=== PATIENT | male | born 1960 | race Caucasian/White ===

== ENCOUNTER 2018-12-29 16:32 | Inpatient (IN) | payer BC, OTHER ==
[2018-12-29] MEDS ORDERED: Sodium Chloride 0.9% 10 ML Syringe FLUSH PRN (16:40)
[2018-12-29] MEDS ORDERED: Iohexol 647 MG/ML 100 ML Bottle IVPUSH ONE (16:43)
[2018-12-29] MEDS ORDERED: Sodium Chloride 0.9% 100 ML IV SCH (16:45)
[2018-12-29] MEDS ORDERED: HYDROmorphone 0.5 MG/0.5 ML Syringe IVPUSH ONE ×3 (16:48→19:19)
--- NOTE | 2018-12-29 18:00 | CT ---
CT chest Technique: Multiple axial sections were obtained from above the lung apices inferiorly through the lung bases. Intravenous contrast was utilized. Comparison: Prior chest x-ray of 09/02/13. Findings: Mediastinum and hilar regions are unremarkable. Aorta shows no aneurysm. No pericardial fluid is seen. Small hiatal hernia is noted. Lungs are clear. No acute parenchymal contusion is seen. No pleural effusions are seen. No pneumothorax is identified. Nondisplaced fracture is seen within the posterior right fourth rib. No additional rib fracture is appreciated. Lateral reconstructed views of the sternum appear within normal limits. Vertebral body heights are maintained. Impression: 1. Nondisplaced fracture within the posterior right fourth rib. 2. Small hiatal hernia. 3. No additional abnormality is appreciated on CT study of the chest. Diagnostic code #3 CT abdomen and pelvis Technique: Multiple axial sections were obtained from above the dome of the diaphragm inferiorly through the pubic symphysis. Intravenous contrast was utilized. No oral contrast has been given. Findings: Liver shows no focal abnormality. Gallbladder contains no calcified gallstones. Spleen appears within normal limits. Adrenal glands shows a small nodule on the left side believed to be incidental. Kidneys show symmetric contrast enhancement and show nothing acute. Aorta shows no aneurysm. Pancreas is within normal limits. No retroperitoneal adenopathy or mesenteric abnormalities are seen. No pelvic mass or adenopathy is seen. Small fat-containing left inguinal hernia is noted. Bone window settings shows disc space narrowing at L4-5 and L5-S1 with vacuum phenomena. Vacuum phenomenon is also noted within the L3-4 apophyseal joints. No acute abnormality is seen within the lumbar spine or pelvis. Impression: 1. Findings which are felt to be incidental as noted above. Nothing acute is appreciated on CT study of the abdomen and pelvis. Diagnostic code #2
--- NOTE | 2018-12-29 18:06 | CT ---
Head CT Technique: Multiple axial sections through the brain were obtained. Intravenous contrast was not utilized. Comparison: No prior intracranial imaging is available. Findings: Ventricles along with basal cisterns and sulci over the convexities are within normal limits. No abnormal parenchymal densities are seen. No evidence of intracranial hemorrhage. No midline shift or mass effect is seen. Bone window settings were reviewed which shows no acute paranasal sinus findings. No calvarial abnormality is appreciated. Impression: 1. Nothing acute is identified on noncontrast head CT exam. Diagnostic code #1
--- NOTE | 2018-12-29 18:06 | CT ---
CT cervical spine Technique: Multiple axial sections through the cervical spine were obtained. Reconstructed coronal and sagittal images were reviewed. Comparison: No prior cervical spine imaging. Findings: Mild degenerative change is noted between the dens and anterior arch of C1. Moderate disc space narrowing is noted at C5-6. Slight anterior osteophytes are noted at C4-5 and C5-6. Slight degenerative spurring is noted within the uncovertebral joints at C5-6. Apophyseal joint shows very minimal scattered degenerative change. Nothing acute is seen within the mastoid sinuses. No fracture is identified. No abnormal subluxation is seen. No bony central or bony neural foraminal stenosis is seen. Impression: 1. Mild degenerative change. 2. No acute fracture or abnormal subluxation is seen. Diagnostic code #2
--- NOTE | 2018-12-29 18:52 | CR ---
Right shoulder: 3 views of the right shoulder were obtained. Comparison: No prior right shoulder exam. Distal clavicle is elevated in relation to the acromion process compatible with mild acromioclavicular separation. Small apical pneumothorax is felt to be present on this exam which is an interval change from previous chest CT performed earlier on the same day. No acute fracture or other bony abnormality is seen seen within the shoulder. Nondisplaced fracture is again noted within the right posterior fourth rib. Impression: 1. Small right-sided apical pneumothorax. 2. Mild right-sided acromioclavicular separation. 3. Fourth rib fracture again noted. Diagnostic code #5
--- NOTE | 2018-12-29 18:54 | EDM.PDOC ---
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 He fell back and hit his head. His said he had a LOC of about a minute. He has pain to his right shoulder and chest. He denies having a headache. He does have some pain to his right neck. He does have some RUQ abdominal pain. He has no nausea or vomiting. He has no hip pain or leg pain. Onset: Sudden Duration: Minutes: Location: Reports: Neck, Chest, Upper Extremity, Right (shoulder) Quality: Reports: Sharp Severity: Moderate Improves with: Reports: None Worsens with: Reports: None Associated Symptoms: Reports: Chest Pain. Denies: Cough, Fever/Chills, Headaches, Nausea/Vomiting, Shortness of Breath Right Shoulder Pain Score (Numeric/FACES): 5 - Related Data Allergies Allergy/AdvReac Type Severity Reaction Status Date / Time No Known Allergies Allergy Verified 12/29/18 16:40 Home Meds: Home Meds Acetaminophen with Codeine [Acetamin-Codein 300-30 mg/12.5] 12.5 ml PO Q4H PRN 12/29/18 [History] Gabapentin [Neurontin] 600 mg PO TID 12/29/18 [History] Lidocaine 5% [Lidoderm 5%] 1 patch TRDERM DAILY 12/29/18 [History] Losartan [Cozaar] 50 mg PO DAILY 12/29/18 [History] Meloxicam 15 mg PO DAILY 12/29/18 [History] Omeprazole 20 mg PO DAILY 12/29/18 [History] amLODIPine [Norvasc] 5 mg PO DAILY 12/29/18 [History] traMADol [Ultram] 50 mg PO BID 12/29/18 [History] Past Medical History Cardiovascular History: Reports: Hypertension Musculoskeletal History: Reports: Other (See Below) Other Musculoskeletal History: back pain, pinched nerve- surgery scheduled middle of December 2018 Neurological History: Reports: Concussion - Past Surgical History HEENT Surgical History: Reports: Other (See Below) Other HEENT Surgeries/Procedures: dental implants GI Surgical History: Reports: Appendectomy Social & Family History - Tobacco Use Smoking Status *Q: Former Smoker Used Tobacco, but Quit: Yes Month/Year Tobacco Last Used: 2017 - Caffeine Use Caffeine Use: Reports: Coffee - Recreational Drug Use Recreational Drug Use: No Review of Systems - Review of Systems Review Of Systems: See Below Constitutional: Reports: No Symptoms Eyes: Reports: No Symptoms Ears: Reports: No Symptoms Nose: Reports: No Symptoms Mouth/Throat: Reports: No Symptoms Respiratory: Reports: No Symptoms Cardiovascular: Reports: Chest Pain GI/Abdominal: Reports: No Symptoms Genitourinary: Reports: No Symptoms Musculoskeletal: Reports: No Symptoms ED EXAM, GENERAL - Physical Exam Exam: See Below Exam Limited By: No Limitations General Appearance: Alert, No Apparent Distress Ears: Normal External Exam Nose: Normal Inspection Head: Atraumatic, Normocephalic Neck: Other (Mild pain upon palpation to the right side of his neck) Respiratory/Chest: No Respiratory Distress, Lungs Clear, Normal Breath Sounds Cardiovascular: Regular Rate, Rhythm, No Edema, No Murmur, Other (Pain upon palpation to the anterior chest) GI/Abdominal: Soft, No Organomegaly, No Mass, Tender (Mild tenderness to the right upper quadrant) Back Exam: Normal Inspection Extremities: Other (Pain upon palpation to the right shoulder. Good sensation and pulses distally.) Neurological: Alert, Oriented, No Motor/Sensory Deficits Course - Vital Signs Last Recorded V/S: Last Vital Signs Temp 97.9 F 12/29/18 16:37 Pulse 98 12/29/18 16:37 Resp 14 12/29/18 16:37 BP 151/104 H 12/29/18 16:37 Pulse Ox 95 12/29/18 16:37 - Orders/Labs/Meds Orders: Active Orders 24 hr Category Date Time Status Cardiac Monitoring [RC] . DIRECTED Care 12/29/18 16:40 Active Peripheral IV Care [RC] . DIRECTED Care 12/29/18 16:40 Active CXR [Chest 1V Frontal] [CR] Stat Exams 12/29/18 19:16 Taken CXR [Chest 1V Frontal] [CR] Stat Exams 12/29/18 19:40 Taken Sodium Chloride 0.9% [Saline Flush] Med 12/29/18 16:40 Active 10 ml FLUSH ASDIRECTED PRN Peripheral IV Insertion Adult [OM.PC] Stat Oth 12/29/18 16:40 Ordered Medication Orders Sodium Chloride (Saline Flush) 10 ml FLUSH ASDIRECTED PRN PRN Reason: Keep Vein Open Last Admin: 12/29/18 17:14 Dose: 10 ml Labs: Laboratory Tests 12/29/18 12/29/18 12/29/18 Range/Units 16:50 16:50 18:39 WBC 13.57 H (4.23-9.07) K/mm3 RBC 4.94 (4.63-6.08) M/mm3 Hgb 14.9 (13.7-17.5) gm/L Hct 45.5 (40.1-51.0) % MCV 92.1 (79.0-92.2) fl MCH 30.2 (25.7-32.2) pg MCHC 32.7 (32.2-35.5) g/dl RDW Std Deviation 44.5 H (35.1-43.9) fL Plt Count 238 (163-337) K/mm3 MPV 10.0 (9.4-12.3) fl Neut % (Auto) 76.0 H (34.0-67.9) % Lymph % (Auto) 12.9 L (21.8-53.1) % [place] % (Auto) 9.9 (5.3-12.2) % Eos % (Auto) 0.1 L (0.8-7.0) Baso % (Auto) 0.1 (0.1-1.2) % Neut # (Auto) 10.30 H (1.78-5.38) K/mm3 Lymph # (Auto) 1.75 (1.32-3.57) K/mm3 [place] # (Auto) 1.34 H (0.30-0.82) K/mm3 Eos # (Auto) 0.02 L (0.04-0.54) K/mm3 Baso # (Auto) 0.02 (0.01-0.08) K/mm3 Manual Slide Review Normal smear Sodium 133 L (136-145) mEq/L Potassium 4.0 (3.5-5.1) mEq/L Chloride 99 (98-107) mEq/L Carbon Dioxide 21 (21-32) mEq/L Anion Gap 17.0 H (5-15) BUN 25 H (7-18) mg/dL Creatinine 0.8 (0.7-1.3) mg/dL Est Cr Clr Drug Dosing 101.39 mL/min Estimated GFR (MDRD) > 60 (>60) mL/min BUN/Creatinine Ratio 31.3 H (14-18) Glucose 99 (74-106) mg/dL Calcium 8.6 (8.5-10.1) mg/dL Total Bilirubin 0.6 (0.2-1.0) mg/dL AST 34 (15-37) U/L ALT 45 (16-63) U/L Alkaline Phosphatase 71 (46-116) U/L Total Protein 7.1 (6.4-8.2) g/dl Albumin 4.2 (3.4-5.0) g/dl Globulin 2.9 gm/dL Albumin/Globulin Ratio 1.5 (1-2) Lipase 293 (73-393) U/L Urine Color (Yellow) Urine Appearance (Clear) Urine pH (5.0-8.0) Ur Specific [place] (1.005-1.030) Urine Protein (Negative) Urine Glucose (UA) (Negative) Urine Ketones (Negative) Urine Occult Blood (Negative) Urine Nitrite (Negative) Urine Bilirubin (Negative) Urine Urobilinogen (0.2-1.0) Ur Leukocyte Esterase (Negative) Urine RBC (0-5) /hpf Urine WBC (0-5) /hpf Ur Epithelial Cells (0-5) /hpf Urine Bacteria (FEW) /hpf Urine Mucus (FEW) /hpf Urine Opiates Screen Presumptive positive H (URBRZD=758) Ur Buprenorphine Scrn Negative (CUTOFF=10) Ur Oxycodone Screen Negative (ZLO1UB=013) Urine Methadone Screen Negative (NMZ3RC=374) Ur Propoxyphene Screen Negative (CSAVXD=926) Ur Barbiturates Screen Negative (TPPFZM=157) Ur Tricyclics Screen Negative (IKJIIP=676) Ur Phencyclidine Scrn Negative (CUTOFF=25) Ur Amphetamine Screen Negative (KMFLCK=156) U Methamphetamines Scrn Negative (GBJVBK=276) U Benzodiazepines Scrn Negative (FXVMYE=953) U Cocaine Metab Screen Negative (DPVZMC=168) U Marijuana (THC) Screen Negative (CUTOFF=50) Ethyl Alcohol 0.00 (0.00) gm% 12/29/18 Range/Units 18:40 WBC (4.23-9.07) K/mm3 RBC (4.63-6.08) M/mm3 Hgb (13.7-17.5) gm/L Hct (40.1-51.0) % MCV (79.0-92.2) fl MCH (25.7-32.2) pg MCHC (32.2-35.5) g/dl RDW Std Deviation (35.1-43.9) fL Plt Count (163-337) K/mm3 MPV (9.4-12.3) fl Neut % (Auto) (34.0-67.9) % Lymph % (Auto) (21.8-53.1) % [place] % (Auto) (5.3-12.2) % Eos % (Auto) (0.8-7.0) Baso % (Auto) (0.1-1.2) % Neut # (Auto) (1.78-5.38) K/mm3 Lymph # (Auto) (1.32-3.57) K/mm3 [place] # (Auto) (0.30-0.82) K/mm3 Eos # (Auto) (0.04-0.54) K/mm3 Baso # (Auto) (0.01-0.08) K/mm3 Manual Slide Review Sodium (136-145) mEq/L Potassium (3.5-5.1) mEq/L Chloride (98-107) mEq/L Carbon Dioxide (21-32) mEq/L Anion Gap (5-15) BUN (7-18) mg/dL Creatinine (0.7-1.3) mg/dL Est Cr Clr Drug Dosing mL/min Estimated GFR (MDRD) (>60) mL/min BUN/Creatinine Ratio (14-18) Glucose (74-106) mg/dL Calcium (8.5-10.1) mg/dL Total Bilirubin (0.2-1.0) mg/dL AST (15-37) U/L ALT (16-63) U/L Alkaline Phosphatase (46-116) U/L Total Protein (6.4-8.2) g/dl Albumin (3.4-5.0) g/dl Globulin gm/dL Albumin/Globulin Ratio (1-2) Lipase (73-393) U/L Urine Color Yellow (Yellow) Urine Appearance Clear (Clear) Urine pH 6.0 (5.0-8.0) Ur Specific [place] 1.015 (1.005-1.030) Urine Protein Trace H (Negative) Urine Glucose (UA) Negative (Negative) Urine Ketones 1+ H (Negative) Urine Occult Blood Negative (Negative) Urine Nitrite Negative (Negative) Urine Bilirubin Negative (Negative) Urine Urobilinogen 0.2 (0.2-1.0) Ur Leukocyte Esterase Negative (Negative) Urine RBC Not seen (0-5) /hpf Urine WBC 0-5 (0-5) /hpf Ur Epithelial Cells 0-5 (0-5) /hpf Urine Bacteria Not seen (FEW) /hpf Urine Mucus Not seen (FEW) /hpf Urine Opiates Screen (EGZHTQ=639) Ur Buprenorphine Scrn (CUTOFF=10) Ur Oxycodone Screen (ENO5DM=354) Urine Methadone Screen (VKB6FT=702) Ur Propoxyphene Screen (CTLCNN=322) Ur Barbiturates Screen (JJSKLG=525) Ur Tricyclics Screen (IMRABR=567) Ur Phencyclidine Scrn (CUTOFF=25) Ur Amphetamine Screen (KUGTBB=279) U Methamphetamines Scrn (DPNOBK=482) U Benzodiazepines Scrn (KAOZJW=338) U Cocaine Metab Screen (VZJETT=654) U Marijuana (THC) Screen (CUTOFF=50) Ethyl Alcohol (0.00) gm% Meds: Medications Generic Name Dose Route Start Last Admin Trade Name Freq PRN Reason Stop Dose Admin Sodium Chloride 10 ml 12/29/18 16:40 12/29/18 17:14 Saline Flush FLUSH 10 ml ASDIRECTED PRN Administration Keep Vein Open Discontinued Medications Generic Name Dose Route Start Last Admin Trade Name Freq PRN Reason Stop Dose Admin Hydromorphone HCl 0.5 mg 12/29/18 16:48 12/29/18 16:52 Dilaudid IVPUSH 12/29/18 16:49 0.5 mg ONETIME ONE Administration Hydromorphone HCl 0.5 mg 12/29/18 17:33 12/29/18 17:36 Dilaudid IVPUSH 12/29/18 17:34 0.5 mg ONETIME ONE Administration Hydromorphone HCl 0.5 mg 12/29/18 19:19 12/29/18 19:22 Dilaudid IVPUSH 12/29/18 19:20 0.5 mg ONETIME ONE Administration Iohexol 100 ml 12/29/18 16:43 12/29/18 17:14 Omnipaque-300 IVPUSH 12/29/18 16:44 100 ml ONETIME ONE Administration - Re-Assessments/Exams Free Text/Narrative Re-Assessment/Exam: 12/29/18 18:56 I ordered an IV saline lock, CT of his head, cervical spine, chest abdomen and pelvis and labs. I also ordered him some dilaudid for pain. His WBC was elevated at 13.57. His Na was low at 133. His anion gap was elevated at 17. His lipase was normal. His UA shows no UTI. His ETOH was normal. The CT of his head shows nothing acute. The CT of his cervical spine shows mild degenerative change. No acute fracture or abnormal subluxation is seen. CT of the chest shows nondisplaced fracture within the posterior right 4th rib. Small hiatal hernia. No additional abnormality is appreciated on CT study of the chest. CT of his abdomen and pelvis shows findings which are felt to be incidental. Nothing acute is appreciated on CT study of the abdomen and pelvis. I did an x-ray of his shoulder and it shows an AC separation and now a small right-sided apical pneumothorax. Fourth rib fracture again is seen. 12/29/18 19:19 His lungs still sound good. I called Dr Alvarez and she came to see the x-ray and I will order an upright AP x-ray to evaluate it further. 12/29/18 20:05 The x-ray did not show a pneumo. Dr Reyes looked at it also and he wanted an expiratory film. On that film we see a pneumo. Dr Alvarez is here and she will admit the patient. Departure - Departure Time of Disposition: 20:10 Disposition: Refer to Observation Condition: Fair Clinical Impression: Acute pneumothorax Rib fracture Qualifiers: Encounter type: initial encounter Rib fracture type: single rib Fracture type: closed Laterality: right Qualified Code(s): S22.31XA - Fracture of one rib, right side, initial encounter for closed fracture Acromioclavicular joint separation, type 1 Qualifiers: Encounter type: initial encounter Laterality: right Qualified Code(s): S43.101A - Unspecified dislocation of right acromioclavicular joint, initial encounter Concussion Qualifiers: Encounter type: initial encounter Loss of consciousness presence/duration: with LOC of 30 min or less Qualified Code(s): S06.0X1A - Concussion with loss of consciousness of 30 minutes or less, initial encounter - Discharge Information Referrals: Saroj Kenny MD [Primary Care Provider] - Forms: ED Department Discharge - My Orders Last 24 Hours: My Active Orders 12/29/18 16:40 Cardiac Monitoring [RC] . DIRECTED Peripheral IV Care [RC] . DIRECTED Sodium Chloride 0.9% [Saline Flush] 10 ml FLUSH ASDIRECTED PRN Peripheral IV Insertion Adult [OM.PC] Stat 12/29/18 19:16 CXR [Chest 1V Frontal] [CR] Stat 12/29/18 19:40 CXR [Chest 1V Frontal] [CR] Stat - Assessment/Plan Last 24 Hours: My Active Orders 12/29/18 16:40 Cardiac Monitoring [RC] . DIRECTED Peripheral IV Care [RC] . DIRECTED Sodium Chloride 0.9% [Saline Flush] 10 ml FLUSH ASDIRECTED PRN Peripheral IV Insertion Adult [OM.PC] Stat 12/29/18 19:16 CXR [Chest 1V Frontal] [CR] Stat 12/29/18 19:40 CXR [Chest 1V Frontal] [CR] Stat
--- NOTE | 2018-12-29 20:09 | CR ---
Chest: Frontal view of the chest was obtained. Comparison: Previous chest CT performed earlier the same day as well as previous right shoulder exam showing a pneumothorax. Previous pneumothorax on shoulder exam is not definitely appreciated on the current study presumably due to inspiration. Minimal discoid atelectasis is seen within the left base. Heart size is normal. Tortuous thoracic aorta is seen. Right acromioclavicular separation is again noted. Impression: 1. Previous pneumothorax is not appreciated presumably due to inspiratory film. Subsequent expiratory film does confirm pneumothorax. 2. Right acromioclavicular separation. Diagnostic code #3
--- NOTE | 2018-12-29 20:09 | CR ---
Chest: Frontal view of the chest was obtained in expiratory phase. Right apical pneumothorax is confirmed on this study. Atelectasis is noted within both lung bases not unexpected for an expiratory film. Right acromioclavicular separation is again seen. Fourth rib fracture is again noted. Impression: 1. Right apical pneumothorax is confirmed. Other findings as noted above. Diagnostic code #5
[2018-12-29] MEDS ORDERED: HYDROmorphone 1 MG/ML Syringe IVPUSH ONE (20:15)
[2018-12-29] MEDS ORDERED: Sodium Chloride 0.9% 1,000 ML IV SCH (20:15)
[2018-12-29] MEDS: Acetaminophen/HYDROcodone 325-5 MG Tab PO PRN (22:20)
[2018-12-30] MEDS: HYDROmorphone 0.5 MG/0.5 ML Syringe IVPUSH PRN ×7 (00:32→22:48)
--- NOTE | 2018-12-30 01:33 | HP ---
DATE OF ADMISSION: 12/29/2018 CHIEF COMPLAINT: Kicked by a cow. HISTORY OF PRESENT ILLNESS: Mr. Crocker is a 58-year-old male who was trying to wrangle with a cow when the cow butted him directly in the chest and he kind of flew in the air and landed on his right side down. This was all witnessed and the patient did have a loss of consciousness for about a minute. He then completely arose and actually came to fairly quickly. Immediately after this happened, he complained of his right shoulder pain. He also complained of some chest wall soreness. He subsequently was transferred here. He was being worked up by emergency physicians and they did a CT scan of the head and neck, which was negative. Did a CT scan of his chest, which demonstrated what was essentially unremarkable, but did show that he had AC dislocation and a 4th rib fracture. Interestingly enough, there were additional films being done of his right AC and it was felt that there was now an apical pneumo which was not obviously seen on the CT scan of the chest. An upright chest with inspiratory and expiratory may be now show a small apical pneumo. Of note, this has happened over 4 hours ago. I was subsequently consulted. Of note, the patient states that he has no shortness of breath, although he does feel that area is sore when he takes a deep breath. He has had no prior lung injuries that we could elicit. Otherwise, the patient does not have any neck pain. He has no blurred or double vision. He states that he has no abdominal pain. No other wrist, elbow, knee, or ankle pain, or pelvic pain. He has no numbness or tingling. PAST MEDICAL HISTORY: ALLERGIES: None. CURRENT MEDICATIONS: He is on an anti-hyperlipidemic pill. He is also on gabapentin. PAST SURGICAL HISTORY: Years ago, he had an appendectomy. Of note, he is scheduled January 27 for a back fusion. SOCIAL HISTORY: Smoking negative. Alcohol, yes. He has 4 children, alive and well and many grandchildren. Of note, the patient had hep C which was fully treated and he is cured, which was done about 4-5 years ago. FAMILY HISTORY: Mother of Alzheimer's. His father of complications of alcoholism. He has 2 brothers and a sister; they are alive and well. REVIEW OF SYSTEMS: He denies seizures or strokes. Denies blurred or double vision. Denies difficulty swallowing. He has no history of diabetes or thyroid problems, but he does have a history of hep C, which was treated. No chronic shortness of breath. He has had no coronary artery disease. He has no history of ulcers, although he does take a Protonix. He denies any history of DVT or blood clots. No blood in his urine or change in his bowel habits. PHYSICAL EXAMINATION: VITAL SIGNS: GCS is 15. HEENT: Pupils are equal. Extraocular movements are intact. There is negative Vera sign. There is no mid face tenderness. There is no neck tenderness. There is tenderness over his right clavicle distally. LUNGS: There is no subcutaneous air anterior or posterior. There are good breath sounds bilaterally even in the apices. HEART: Rhythm is regular. ABDOMEN: Soft, nontender. PELVIS: Stable. EXTREMITIES: There is no ankle swelling or edema, and there are no deformities of his elbows, wrists, knees, or ankles. I had him stand up and there is no tenderness above his upper back. On the 4th rib area, indeed there is tenderness, but again there is no subcutaneous air. There is no CVA tenderness and there is no bruising. RADIOGRAPHIC STUDIES: CT scans as I had discussed. LABORATORY DATA: His H and H are 14 and 45 respectively. His electrolytes are normal with sodium being 133. His BUN was slightly elevated at 20. His liver functions are normal. His UA is only positive for a slight amount of ketones. Injuries identified are as discussed above. ASSESSMENT AND PLAN: 1. Questionable apical pneumo. It is very interesting that the CT scan does not show this, but certainly on the expiration, there might be little apical pneumothoraces, and for that reason, I do want to admit him for repeat chest x-ray and to monitor him closely here especially because he lives so far away. I clearly discussed this with the family that we will monitor him closely. If indeed this should significantly increase to the point he is symptomatic, he would need a chest tube, but at this point, I do not think he needs one, they understand. 2. AC separation, is treated by the ED physician. 3. Rib fracture. Pain medicine only. 4. Closed head injury with no intracranial gross pathology. We will just monitor him serially with exams. I had the opportunity to discuss with the family. They agree and we will see how he does over the course of the evening. What we will do is plan on a repeat chest x-ray first thing in the morning. His regular home medications will be held as I anticipate that we will be able to start them in the morning. TAMELA /[id number]
--- NOTE | 2018-12-30 08:36 | CR ---
Chest: Two views of the chest were obtained. Comparison: Prior chest x-ray of 12/29/18. Right apical pneumothorax is seen. This occupies approximately 20% of the lung. This has slightly increased in size from previous exam. Slight atelectasis seen within both lung bases. Lungs otherwise are clear. Heart size is normal. Tortuous thoracic aorta is seen. Impression: 1. Slightly increasing right apical pneumothorax occupying approximately 20% of the right lung. 2. Other incidental findings. Diagnostic code #3
--- NOTE | 2018-12-30 08:52 | PCM.PN ---
- General Info Date of Service: 12/30/18 - Patient Data Vitals - Most Recent: Last Vital Signs Temp 98.2 F 12/30/18 03:55 Pulse 79 12/30/18 03:55 Resp 18 12/30/18 03:55 BP 148/92 H 12/30/18 03:55 Pulse Ox 96 12/30/18 03:55 Weight - Most Recent: 230 lb 2 oz I&O - Last 24 Hours: Intake & Output 12/29/18 12/30/18 12/30/18 22:59 06:59 14:59 Intake Total 713 Output Total 600 Balance 113 Lab Results Last 24 Hours: Laboratory Results - last 24 hr 12/29/18 12/29/18 12/29/18 Range/Units 16:50 16:50 18:39 WBC 13.57 H (4.23-9.07) K/mm3 RBC 4.94 (4.63-6.08) M/mm3 Hgb 14.9 (13.7-17.5) gm/L Hct 45.5 (40.1-51.0) % MCV 92.1 (79.0-92.2) fl MCH 30.2 (25.7-32.2) pg MCHC 32.7 (32.2-35.5) g/dl RDW Std Deviation 44.5 H (35.1-43.9) fL Plt Count 238 (163-337) K/mm3 MPV 10.0 (9.4-12.3) fl Neut % (Auto) 76.0 H (34.0-67.9) % Lymph % (Auto) 12.9 L (21.8-53.1) % [place] % (Auto) 9.9 (5.3-12.2) % Eos % (Auto) 0.1 L (0.8-7.0) Baso % (Auto) 0.1 (0.1-1.2) % Neut # (Auto) 10.30 H (1.78-5.38) K/mm3 Lymph # (Auto) 1.75 (1.32-3.57) K/mm3 [place] # (Auto) 1.34 H (0.30-0.82) K/mm3 Eos # (Auto) 0.02 L (0.04-0.54) K/mm3 Baso # (Auto) 0.02 (0.01-0.08) K/mm3 Manual Slide Review Normal smear Sodium 133 L (136-145) mEq/L Potassium 4.0 (3.5-5.1) mEq/L Chloride 99 (98-107) mEq/L Carbon Dioxide 21 (21-32) mEq/L Anion Gap 17.0 H (5-15) BUN 25 H (7-18) mg/dL Creatinine 0.8 (0.7-1.3) mg/dL Est Cr Clr Drug Dosing 101.39 mL/min Estimated GFR (MDRD) > 60 (>60) mL/min BUN/Creatinine Ratio 31.3 H (14-18) Glucose 99 (74-106) mg/dL Calcium 8.6 (8.5-10.1) mg/dL Total Bilirubin 0.6 (0.2-1.0) mg/dL AST 34 (15-37) U/L ALT 45 (16-63) U/L Alkaline Phosphatase 71 (46-116) U/L Total Protein 7.1 (6.4-8.2) g/dl Albumin 4.2 (3.4-5.0) g/dl Globulin 2.9 gm/dL Albumin/Globulin Ratio 1.5 (1-2) Lipase 293 (73-393) U/L Urine Color (Yellow) Urine Appearance (Clear) Urine pH (5.0-8.0) Ur Specific [place] (1.005-1.030) Urine Protein (Negative) Urine Glucose (UA) (Negative) Urine Ketones (Negative) Urine Occult Blood (Negative) Urine Nitrite (Negative) Urine Bilirubin (Negative) Urine Urobilinogen (0.2-1.0) Ur Leukocyte Esterase (Negative) Urine RBC (0-5) /hpf Urine WBC (0-5) /hpf Ur Epithelial Cells (0-5) /hpf Urine Bacteria (FEW) /hpf Urine Mucus (FEW) /hpf Urine Opiates Screen Presumptive positive H (MAEVCI=063) Ur Buprenorphine Scrn Negative (CUTOFF=10) Ur Oxycodone Screen Negative (KAI6RX=976) Urine Methadone Screen Negative (RMB2GD=062) Ur Propoxyphene Screen Negative (CHUXNX=608) Ur Barbiturates Screen Negative (RZVVIZ=586) Ur Tricyclics Screen Negative (CFXCLJ=051) Ur Phencyclidine Scrn Negative (CUTOFF=25) Ur Amphetamine Screen Negative (VYSYCV=162) U Methamphetamines Scrn Negative (IESMDB=627) U Benzodiazepines Scrn Negative (DYOWMJ=402) U Cocaine Metab Screen Negative (GDMGEP=048) U Marijuana (THC) Screen Negative (CUTOFF=50) Ethyl Alcohol 0.00 (0.00) gm% 12/29/18 Range/Units 18:40 WBC (4.23-9.07) K/mm3 RBC (4.63-6.08) M/mm3 Hgb (13.7-17.5) gm/L Hct (40.1-51.0) % MCV (79.0-92.2) fl MCH (25.7-32.2) pg MCHC (32.2-35.5) g/dl RDW Std Deviation (35.1-43.9) fL Plt Count (163-337) K/mm3 MPV (9.4-12.3) fl Neut % (Auto) (34.0-67.9) % Lymph % (Auto) (21.8-53.1) % [place] % (Auto) (5.3-12.2) % Eos % (Auto) (0.8-7.0) Baso % (Auto) (0.1-1.2) % Neut # (Auto) (1.78-5.38) K/mm3 Lymph # (Auto) (1.32-3.57) K/mm3 [place] # (Auto) (0.30-0.82) K/mm3 Eos # (Auto) (0.04-0.54) K/mm3 Baso # (Auto) (0.01-0.08) K/mm3 Manual Slide Review Sodium (136-145) mEq/L Potassium (3.5-5.1) mEq/L Chloride (98-107) mEq/L Carbon Dioxide (21-32) mEq/L Anion Gap (5-15) BUN (7-18) mg/dL Creatinine (0.7-1.3) mg/dL Est Cr Clr Drug Dosing mL/min Estimated GFR (MDRD) (>60) mL/min BUN/Creatinine Ratio (14-18) Glucose (74-106) mg/dL Calcium (8.5-10.1) mg/dL Total Bilirubin (0.2-1.0) mg/dL AST (15-37) U/L ALT (16-63) U/L Alkaline Phosphatase (46-116) U/L Total Protein (6.4-8.2) g/dl Albumin (3.4-5.0) g/dl Globulin gm/dL Albumin/Globulin Ratio (1-2) Lipase (73-393) U/L Urine Color Yellow (Yellow) Urine Appearance Clear (Clear) Urine pH 6.0 (5.0-8.0) Ur Specific [place] 1.015 (1.005-1.030) Urine Protein Trace H (Negative) Urine Glucose (UA) Negative (Negative) Urine Ketones 1+ H (Negative) Urine Occult Blood Negative (Negative) Urine Nitrite Negative (Negative) Urine Bilirubin Negative (Negative) Urine Urobilinogen 0.2 (0.2-1.0) Ur Leukocyte Esterase Negative (Negative) Urine RBC Not seen (0-5) /hpf Urine WBC 0-5 (0-5) /hpf Ur Epithelial Cells 0-5 (0-5) /hpf Urine Bacteria Not seen (FEW) /hpf Urine Mucus Not seen (FEW) /hpf Urine Opiates Screen (PLHAHQ=919) Ur Buprenorphine Scrn (CUTOFF=10) Ur Oxycodone Screen (XHK1JA=119) Urine Methadone Screen (WNV0UR=778) Ur Propoxyphene Screen (GRSJVE=057) Ur Barbiturates Screen (YLIOQU=617) Ur Tricyclics Screen (VWZEPK=748) Ur Phencyclidine Scrn (CUTOFF=25) Ur Amphetamine Screen (UKYNWC=543) U Methamphetamines Scrn (AZMVCV=708) U Benzodiazepines Scrn (XSVEUC=971) U Cocaine Metab Screen (SBFJEC=580) U Marijuana (THC) Screen (CUTOFF=50) Ethyl Alcohol (0.00) gm% Med Orders - Current: Current Medications Hydrocodone Bitart/Acetaminophen ([place] 325-5 Mg) 1 - 2 tab PO Q6H PRN PRN Reason: Pain Last Admin: 12/29/18 22:20 Dose: 2 tab Hydromorphone HCl (Dilaudid) 0.5 mg IVPUSH Q2H PRN PRN Reason: Pain Last Admin: 12/30/18 06:44 Dose: 0.5 mg Sodium Chloride (Normal Saline) 1,000 mls @ 50 mls/hr IV ASDIRECTED JORGE Last Admin: 12/29/18 20:23 Dose: 50 mls/hr Sodium Chloride (Saline Flush) 10 ml FLUSH ASDIRECTED PRN PRN Reason: Keep Vein Open Last Admin: 12/29/18 17:14 Dose: 10 ml Discontinued Medications Hydromorphone HCl (Dilaudid) 0.5 mg IVPUSH ONETIME ONE Stop: 12/29/18 16:49 Last Admin: 12/29/18 16:52 Dose: 0.5 mg Hydromorphone HCl (Dilaudid) 0.5 mg IVPUSH ONETIME ONE Stop: 12/29/18 17:34 Last Admin: 12/29/18 17:36 Dose: 0.5 mg Hydromorphone HCl (Dilaudid) 0.5 mg IVPUSH ONETIME ONE Stop: 12/29/18 19:20 Last Admin: 12/29/18 19:22 Dose: 0.5 mg Hydromorphone HCl (Dilaudid) 1 mg IVPUSH ONETIME ONE Stop: 12/29/18 20:16 Last Admin: 12/29/18 20:23 Dose: 1 mg Iohexol (Omnipaque-300) 100 ml IVPUSH ONETIME ONE Stop: 12/29/18 16:44 Last Admin: 12/29/18 17:14 Dose: 100 ml - Problem List Review Problem List Initiated/Reviewed/Updated: Yes - My Orders Last 24 Hours: My Active Orders 12/29/18 20:15 Sodium Chloride 0.9% [Normal Saline] 1,000 ml IV ASDIRECTED 12/29/18 21:59 Acetaminophen/HYDROcodone [[place] 325-5 MG] 1 - 2 tab PO Q6H PRN 12/29/18 22:00 HYDROmorphone [Dilaudid] 0.5 mg IVPUSH Q2H PRN 12/29/18 22:01 Pulse Oximetry Continuous Monitoring [OM.PC] Routine 12/29/18 22:02 Resuscitation Status Routine 12/29/18 22:04 Neuro Check [RC] Q4HR 12/29/18 22:23 Antiembolic Devices [RC] 09,21 SCD [Sequential Compression Device] [OM.PC] Routine 12/29/18 22:45 Oxygen Therapy [RC] PRN 12/29/18 22:46 Communication Order [RC] BID 12/30/18 00:31 Vital Signs [RC] Q4HR 12/30/18 08:44 Patient Status [ADT] Routine 12/30/18 12:00 Chest 1V Frontal [CR] Routine 12/30/18 Breakfast Regular Diet [DIET] - Plan Plan:: Mr. Crocker was uncomfortable during the night but without any shortness of breath . He was noted to have periods of apnea by the nursing staff He complaint of chest wall soreness on the right only no new problems PE GCS 15 pupils equal Lungs -- slight decrease in the right upper chest wall-- there is eccyhmosis on the upper back There is no gross subcut air PLAN 1> pneumo change to full admission follow up chest xray at noon---he may need a chest tube if it becomes sx 2--soft tissue contusion- 3--ac dislocation --no change will start the home med will need to discuss with Dr. Wiggins. Thank you
[2018-12-30] MEDS: Acetaminophen/HYDROcodone 325-5 MG Tab PO PRN ×3 (09:02→22:45)
--- NOTE | 2018-12-30 13:06 | CR ---
Chest: Frontal view of the chest was obtained. Comparison: Prior chest x-ray performed earlier on the same day (8:11 AM) Findings: Right apical pneumothorax is seen. This finding is felt to be fairly stable from most recent exam and involves about 20% of the lung. Minimal atelectasis noted within both lung bases. Lungs otherwise are clear. Heart size is normal. Tortuous thoracic aorta is seen. Impression: 1. Stable right apical pneumothorax as described above when compared to most recent study performed earlier on same day. 2. Mild bibasilar atelectasis. Diagnostic code #3
[2018-12-30] MEDS ORDERED: Sodium Chloride 0.9% 10 ML Syringe FLUSH PRN (13:15)
--- NOTE | 2018-12-30 13:21 | PCM.PN ---
- General Info Date of Service: 12/30/18 - Patient Data Vitals - Most Recent: Last Vital Signs Temp 98.1 F 12/30/18 09:05 Pulse 81 12/30/18 09:05 Resp 16 12/30/18 09:05 BP 146/86 H 12/30/18 09:05 Pulse Ox 98 12/30/18 09:05 Weight - Most Recent: 230 lb 2 oz I&O - Last 24 Hours: Intake & Output 12/29/18 12/30/18 12/30/18 22:59 06:59 14:59 Intake Total 713 Output Total 600 Balance 113 Lab Results Last 24 Hours: Laboratory Results - last 24 hr 12/29/18 12/29/18 12/29/18 Range/Units 16:50 16:50 18:39 WBC 13.57 H (4.23-9.07) K/mm3 RBC 4.94 (4.63-6.08) M/mm3 Hgb 14.9 (13.7-17.5) gm/L Hct 45.5 (40.1-51.0) % MCV 92.1 (79.0-92.2) fl MCH 30.2 (25.7-32.2) pg MCHC 32.7 (32.2-35.5) g/dl RDW Std Deviation 44.5 H (35.1-43.9) fL Plt Count 238 (163-337) K/mm3 MPV 10.0 (9.4-12.3) fl Neut % (Auto) 76.0 H (34.0-67.9) % Lymph % (Auto) 12.9 L (21.8-53.1) % [place] % (Auto) 9.9 (5.3-12.2) % Eos % (Auto) 0.1 L (0.8-7.0) Baso % (Auto) 0.1 (0.1-1.2) % Neut # (Auto) 10.30 H (1.78-5.38) K/mm3 Lymph # (Auto) 1.75 (1.32-3.57) K/mm3 [place] # (Auto) 1.34 H (0.30-0.82) K/mm3 Eos # (Auto) 0.02 L (0.04-0.54) K/mm3 Baso # (Auto) 0.02 (0.01-0.08) K/mm3 Manual Slide Review Normal smear Sodium 133 L (136-145) mEq/L Potassium 4.0 (3.5-5.1) mEq/L Chloride 99 (98-107) mEq/L Carbon Dioxide 21 (21-32) mEq/L Anion Gap 17.0 H (5-15) BUN 25 H (7-18) mg/dL Creatinine 0.8 (0.7-1.3) mg/dL Est Cr Clr Drug Dosing 101.39 mL/min Estimated GFR (MDRD) > 60 (>60) mL/min BUN/Creatinine Ratio 31.3 H (14-18) Glucose 99 (74-106) mg/dL Calcium 8.6 (8.5-10.1) mg/dL Total Bilirubin 0.6 (0.2-1.0) mg/dL AST 34 (15-37) U/L ALT 45 (16-63) U/L Alkaline Phosphatase 71 (46-116) U/L Total Protein 7.1 (6.4-8.2) g/dl Albumin 4.2 (3.4-5.0) g/dl Globulin 2.9 gm/dL Albumin/Globulin Ratio 1.5 (1-2) Lipase 293 (73-393) U/L Urine Color (Yellow) Urine Appearance (Clear) Urine pH (5.0-8.0) Ur Specific [place] (1.005-1.030) Urine Protein (Negative) Urine Glucose (UA) (Negative) Urine Ketones (Negative) Urine Occult Blood (Negative) Urine Nitrite (Negative) Urine Bilirubin (Negative) Urine Urobilinogen (0.2-1.0) Ur Leukocyte Esterase (Negative) Urine RBC (0-5) /hpf Urine WBC (0-5) /hpf Ur Epithelial Cells (0-5) /hpf Urine Bacteria (FEW) /hpf Urine Mucus (FEW) /hpf Urine Opiates Screen Presumptive positive H (NEJZGY=005) Ur Buprenorphine Scrn Negative (CUTOFF=10) Ur Oxycodone Screen Negative (XBT7SB=618) Urine Methadone Screen Negative (MJH6MD=030) Ur Propoxyphene Screen Negative (CUZXUZ=054) Ur Barbiturates Screen Negative (RHQCZF=862) Ur Tricyclics Screen Negative (ORDNAD=149) Ur Phencyclidine Scrn Negative (CUTOFF=25) Ur Amphetamine Screen Negative (XXSQTT=728) U Methamphetamines Scrn Negative (NNYLPW=704) U Benzodiazepines Scrn Negative (EWSBMM=521) U Cocaine Metab Screen Negative (QIZODQ=907) U Marijuana (THC) Screen Negative (CUTOFF=50) Ethyl Alcohol 0.00 (0.00) gm% 12/29/18 Range/Units 18:40 WBC (4.23-9.07) K/mm3 RBC (4.63-6.08) M/mm3 Hgb (13.7-17.5) gm/L Hct (40.1-51.0) % MCV (79.0-92.2) fl MCH (25.7-32.2) pg MCHC (32.2-35.5) g/dl RDW Std Deviation (35.1-43.9) fL Plt Count (163-337) K/mm3 MPV (9.4-12.3) fl Neut % (Auto) (34.0-67.9) % Lymph % (Auto) (21.8-53.1) % [place] % (Auto) (5.3-12.2) % Eos % (Auto) (0.8-7.0) Baso % (Auto) (0.1-1.2) % Neut # (Auto) (1.78-5.38) K/mm3 Lymph # (Auto) (1.32-3.57) K/mm3 [place] # (Auto) (0.30-0.82) K/mm3 Eos # (Auto) (0.04-0.54) K/mm3 Baso # (Auto) (0.01-0.08) K/mm3 Manual Slide Review Sodium (136-145) mEq/L Potassium (3.5-5.1) mEq/L Chloride (98-107) mEq/L Carbon Dioxide (21-32) mEq/L Anion Gap (5-15) BUN (7-18) mg/dL Creatinine (0.7-1.3) mg/dL Est Cr Clr Drug Dosing mL/min Estimated GFR (MDRD) (>60) mL/min BUN/Creatinine Ratio (14-18) Glucose (74-106) mg/dL Calcium (8.5-10.1) mg/dL Total Bilirubin (0.2-1.0) mg/dL AST (15-37) U/L ALT (16-63) U/L Alkaline Phosphatase (46-116) U/L Total Protein (6.4-8.2) g/dl Albumin (3.4-5.0) g/dl Globulin gm/dL Albumin/Globulin Ratio (1-2) Lipase (73-393) U/L Urine Color Yellow (Yellow) Urine Appearance Clear (Clear) Urine pH 6.0 (5.0-8.0) Ur Specific [place] 1.015 (1.005-1.030) Urine Protein Trace H (Negative) Urine Glucose (UA) Negative (Negative) Urine Ketones 1+ H (Negative) Urine Occult Blood Negative (Negative) Urine Nitrite Negative (Negative) Urine Bilirubin Negative (Negative) Urine Urobilinogen 0.2 (0.2-1.0) Ur Leukocyte Esterase Negative (Negative) Urine RBC Not seen (0-5) /hpf Urine WBC 0-5 (0-5) /hpf Ur Epithelial Cells 0-5 (0-5) /hpf Urine Bacteria Not seen (FEW) /hpf Urine Mucus Not seen (FEW) /hpf Urine Opiates Screen (MNTPOK=993) Ur Buprenorphine Scrn (CUTOFF=10) Ur Oxycodone Screen (KGR0BB=295) Urine Methadone Screen (YPY8HP=754) Ur Propoxyphene Screen (ZJWYLW=254) Ur Barbiturates Screen (KXIFMQ=354) Ur Tricyclics Screen (WYFBPH=689) Ur Phencyclidine Scrn (CUTOFF=25) Ur Amphetamine Screen (HNTRHP=469) U Methamphetamines Scrn (BYXEJV=200) U Benzodiazepines Scrn (SZMYUY=976) U Cocaine Metab Screen (RYNMLH=798) U Marijuana (THC) Screen (CUTOFF=50) Ethyl Alcohol (0.00) gm% Med Orders - Current: Current Medications Hydrocodone Bitart/Acetaminophen ([place] 325-5 Mg) 1 - 2 tab PO Q6H PRN PRN Reason: Pain Last Admin: 12/30/18 09:02 Dose: 2 tab Amlodipine Besylate (Norvasc) 5 mg PO DAILY JORGE Gabapentin (Neurontin) 600 mg PO TID JORGE Hydromorphone HCl (Dilaudid) 0.5 mg IVPUSH Q2H PRN PRN Reason: Pain Last Admin: 12/30/18 10:36 Dose: 0.5 mg Sodium Chloride (Normal Saline) 1,000 mls @ 50 mls/hr IV ASDIRECTED JORGE Last Admin: 12/29/18 20:23 Dose: 50 mls/hr Losartan Potassium (Cozaar) 25 mg PO DAILY JORGE Sodium Chloride (Saline Flush) 10 ml FLUSH ASDIRECTED PRN PRN Reason: Keep Vein Open Discontinued Medications Hydromorphone HCl (Dilaudid) 0.5 mg IVPUSH ONETIME ONE Stop: 12/29/18 16:49 Last Admin: 12/29/18 16:52 Dose: 0.5 mg Hydromorphone HCl (Dilaudid) 0.5 mg IVPUSH ONETIME ONE Stop: 12/29/18 17:34 Last Admin: 12/29/18 17:36 Dose: 0.5 mg Hydromorphone HCl (Dilaudid) 0.5 mg IVPUSH ONETIME ONE Stop: 12/29/18 19:20 Last Admin: 12/29/18 19:22 Dose: 0.5 mg Hydromorphone HCl (Dilaudid) 1 mg IVPUSH ONETIME ONE Stop: 12/29/18 20:16 Last Admin: 12/29/18 20:23 Dose: 1 mg Iohexol (Omnipaque-300) 100 ml IVPUSH ONETIME ONE Stop: 12/29/18 16:44 Last Admin: 12/29/18 17:14 Dose: 100 ml Sodium Chloride (Saline Flush) 10 ml FLUSH ASDIRECTED PRN PRN Reason: Keep Vein Open Last Admin: 12/29/18 17:14 Dose: 10 ml - Problem List Review Problem List Initiated/Reviewed/Updated: Yes - My Orders Last 24 Hours: My Active Orders 12/29/18 20:15 Sodium Chloride 0.9% [Normal Saline] 1,000 ml IV ASDIRECTED 12/29/18 21:59 Acetaminophen/HYDROcodone [[place] 325-5 MG] 1 - 2 tab PO Q6H PRN 12/29/18 22:00 HYDROmorphone [Dilaudid] 0.5 mg IVPUSH Q2H PRN 12/29/18 22:01 Pulse Oximetry Continuous Monitoring [OM.PC] Routine 12/29/18 22:02 Resuscitation Status Routine 12/29/18 22:04 Neuro Check [RC] Q4HR 12/29/18 22:23 Antiembolic Devices [RC] 09,21 SCD [Sequential Compression Device] [OM.PC] Routine 12/29/18 22:45 Oxygen Therapy [RC] PRN 12/29/18 22:46 Communication Order [RC] BID 12/30/18 00:31 Vital Signs [RC] Q4HR 12/30/18 08:30 Incentive Breathing [RT Incentive Spirometry] [RC] ASDIRECTED 12/30/18 08:44 Patient Status [ADT] Routine 12/30/18 13:15 Sodium Chloride 0.9% [Saline Flush] 10 ml FLUSH ASDIRECTED PRN Convert IV to Saline Lock [OM.PC] Routine 12/30/18 15:00 Gabapentin [Neurontin] 600 mg PO TID 12/30/18 Breakfast Regular Diet [DIET] 12/31/18 08:00 Chest 1V Frontal [CR] Routine 12/31/18 09:00 Losartan [Cozaar] 25 mg PO DAILY amLODIPine [Norvasc] 5 mg PO DAILY - Plan Plan:: Mr. Crocker was uncomfortable during the night but without any shortness of breath . He was noted to have periods of apnea by the nursing staff He complaint of chest wall soreness on the right only no new problems PE GCS 15 pupils equal Lungs -- slight decrease in the right upper chest wall-- there is eccyhmosis on the upper back There is no gross subcut air PLAN 1> pneumo change to full admission follow up chest xray at noon---he may need a chest tube if it becomes sx 2--soft tissue contusion- 3--ac dislocation --no change will start the home med will need to discuss with Dr. Wiggins. Thank you
--- NOTE | 2018-12-30 13:23 | PCM.PN ---
- General Info Date of Service: 12/30/18 - Patient Data Vitals - Most Recent: Last Vital Signs Temp 98.1 F 12/30/18 09:05 Pulse 81 12/30/18 09:05 Resp 16 12/30/18 09:05 BP 146/86 H 12/30/18 09:05 Pulse Ox 98 12/30/18 09:05 Weight - Most Recent: 230 lb 2 oz I&O - Last 24 Hours: Intake & Output 12/29/18 12/30/18 12/30/18 22:59 06:59 14:59 Intake Total 713 Output Total 600 Balance 113 Lab Results Last 24 Hours: Laboratory Results - last 24 hr 12/29/18 12/29/18 12/29/18 Range/Units 16:50 16:50 18:39 WBC 13.57 H (4.23-9.07) K/mm3 RBC 4.94 (4.63-6.08) M/mm3 Hgb 14.9 (13.7-17.5) gm/L Hct 45.5 (40.1-51.0) % MCV 92.1 (79.0-92.2) fl MCH 30.2 (25.7-32.2) pg MCHC 32.7 (32.2-35.5) g/dl RDW Std Deviation 44.5 H (35.1-43.9) fL Plt Count 238 (163-337) K/mm3 MPV 10.0 (9.4-12.3) fl Neut % (Auto) 76.0 H (34.0-67.9) % Lymph % (Auto) 12.9 L (21.8-53.1) % [place] % (Auto) 9.9 (5.3-12.2) % Eos % (Auto) 0.1 L (0.8-7.0) Baso % (Auto) 0.1 (0.1-1.2) % Neut # (Auto) 10.30 H (1.78-5.38) K/mm3 Lymph # (Auto) 1.75 (1.32-3.57) K/mm3 [place] # (Auto) 1.34 H (0.30-0.82) K/mm3 Eos # (Auto) 0.02 L (0.04-0.54) K/mm3 Baso # (Auto) 0.02 (0.01-0.08) K/mm3 Manual Slide Review Normal smear Sodium 133 L (136-145) mEq/L Potassium 4.0 (3.5-5.1) mEq/L Chloride 99 (98-107) mEq/L Carbon Dioxide 21 (21-32) mEq/L Anion Gap 17.0 H (5-15) BUN 25 H (7-18) mg/dL Creatinine 0.8 (0.7-1.3) mg/dL Est Cr Clr Drug Dosing 101.39 mL/min Estimated GFR (MDRD) > 60 (>60) mL/min BUN/Creatinine Ratio 31.3 H (14-18) Glucose 99 (74-106) mg/dL Calcium 8.6 (8.5-10.1) mg/dL Total Bilirubin 0.6 (0.2-1.0) mg/dL AST 34 (15-37) U/L ALT 45 (16-63) U/L Alkaline Phosphatase 71 (46-116) U/L Total Protein 7.1 (6.4-8.2) g/dl Albumin 4.2 (3.4-5.0) g/dl Globulin 2.9 gm/dL Albumin/Globulin Ratio 1.5 (1-2) Lipase 293 (73-393) U/L Urine Color (Yellow) Urine Appearance (Clear) Urine pH (5.0-8.0) Ur Specific [place] (1.005-1.030) Urine Protein (Negative) Urine Glucose (UA) (Negative) Urine Ketones (Negative) Urine Occult Blood (Negative) Urine Nitrite (Negative) Urine Bilirubin (Negative) Urine Urobilinogen (0.2-1.0) Ur Leukocyte Esterase (Negative) Urine RBC (0-5) /hpf Urine WBC (0-5) /hpf Ur Epithelial Cells (0-5) /hpf Urine Bacteria (FEW) /hpf Urine Mucus (FEW) /hpf Urine Opiates Screen Presumptive positive H (RTSYHZ=998) Ur Buprenorphine Scrn Negative (CUTOFF=10) Ur Oxycodone Screen Negative (VTV3RB=057) Urine Methadone Screen Negative (DHR2MN=326) Ur Propoxyphene Screen Negative (EIGWGL=619) Ur Barbiturates Screen Negative (MRBAIM=477) Ur Tricyclics Screen Negative (MQHWFO=103) Ur Phencyclidine Scrn Negative (CUTOFF=25) Ur Amphetamine Screen Negative (DWAWIM=807) U Methamphetamines Scrn Negative (EOXLGQ=618) U Benzodiazepines Scrn Negative (IQOXEQ=858) U Cocaine Metab Screen Negative (CTDJZH=630) U Marijuana (THC) Screen Negative (CUTOFF=50) Ethyl Alcohol 0.00 (0.00) gm% 12/29/18 Range/Units 18:40 WBC (4.23-9.07) K/mm3 RBC (4.63-6.08) M/mm3 Hgb (13.7-17.5) gm/L Hct (40.1-51.0) % MCV (79.0-92.2) fl MCH (25.7-32.2) pg MCHC (32.2-35.5) g/dl RDW Std Deviation (35.1-43.9) fL Plt Count (163-337) K/mm3 MPV (9.4-12.3) fl Neut % (Auto) (34.0-67.9) % Lymph % (Auto) (21.8-53.1) % [place] % (Auto) (5.3-12.2) % Eos % (Auto) (0.8-7.0) Baso % (Auto) (0.1-1.2) % Neut # (Auto) (1.78-5.38) K/mm3 Lymph # (Auto) (1.32-3.57) K/mm3 [place] # (Auto) (0.30-0.82) K/mm3 Eos # (Auto) (0.04-0.54) K/mm3 Baso # (Auto) (0.01-0.08) K/mm3 Manual Slide Review Sodium (136-145) mEq/L Potassium (3.5-5.1) mEq/L Chloride (98-107) mEq/L Carbon Dioxide (21-32) mEq/L Anion Gap (5-15) BUN (7-18) mg/dL Creatinine (0.7-1.3) mg/dL Est Cr Clr Drug Dosing mL/min Estimated GFR (MDRD) (>60) mL/min BUN/Creatinine Ratio (14-18) Glucose (74-106) mg/dL Calcium (8.5-10.1) mg/dL Total Bilirubin (0.2-1.0) mg/dL AST (15-37) U/L ALT (16-63) U/L Alkaline Phosphatase (46-116) U/L Total Protein (6.4-8.2) g/dl Albumin (3.4-5.0) g/dl Globulin gm/dL Albumin/Globulin Ratio (1-2) Lipase (73-393) U/L Urine Color Yellow (Yellow) Urine Appearance Clear (Clear) Urine pH 6.0 (5.0-8.0) Ur Specific [place] 1.015 (1.005-1.030) Urine Protein Trace H (Negative) Urine Glucose (UA) Negative (Negative) Urine Ketones 1+ H (Negative) Urine Occult Blood Negative (Negative) Urine Nitrite Negative (Negative) Urine Bilirubin Negative (Negative) Urine Urobilinogen 0.2 (0.2-1.0) Ur Leukocyte Esterase Negative (Negative) Urine RBC Not seen (0-5) /hpf Urine WBC 0-5 (0-5) /hpf Ur Epithelial Cells 0-5 (0-5) /hpf Urine Bacteria Not seen (FEW) /hpf Urine Mucus Not seen (FEW) /hpf Urine Opiates Screen (KZHYHR=529) Ur Buprenorphine Scrn (CUTOFF=10) Ur Oxycodone Screen (NDW9BZ=362) Urine Methadone Screen (TQS9PY=312) Ur Propoxyphene Screen (TRECYM=480) Ur Barbiturates Screen (BLERMJ=448) Ur Tricyclics Screen (DENZZP=157) Ur Phencyclidine Scrn (CUTOFF=25) Ur Amphetamine Screen (JGYTZN=125) U Methamphetamines Scrn (AQYBIF=961) U Benzodiazepines Scrn (PXFEPZ=672) U Cocaine Metab Screen (ORPGXT=306) U Marijuana (THC) Screen (CUTOFF=50) Ethyl Alcohol (0.00) gm% Med Orders - Current: Current Medications Hydrocodone Bitart/Acetaminophen ([place] 325-5 Mg) 1 - 2 tab PO Q6H PRN PRN Reason: Pain Last Admin: 12/30/18 09:02 Dose: 2 tab Amlodipine Besylate (Norvasc) 5 mg PO DAILY JORGE Gabapentin (Neurontin) 600 mg PO TID JORGE Hydromorphone HCl (Dilaudid) 0.5 mg IVPUSH Q2H PRN PRN Reason: Pain Last Admin: 12/30/18 10:36 Dose: 0.5 mg Sodium Chloride (Normal Saline) 1,000 mls @ 50 mls/hr IV ASDIRECTED JORGE Last Admin: 12/29/18 20:23 Dose: 50 mls/hr Losartan Potassium (Cozaar) 25 mg PO DAILY JORGE Sodium Chloride (Saline Flush) 10 ml FLUSH ASDIRECTED PRN PRN Reason: Keep Vein Open Discontinued Medications Hydromorphone HCl (Dilaudid) 0.5 mg IVPUSH ONETIME ONE Stop: 12/29/18 16:49 Last Admin: 12/29/18 16:52 Dose: 0.5 mg Hydromorphone HCl (Dilaudid) 0.5 mg IVPUSH ONETIME ONE Stop: 12/29/18 17:34 Last Admin: 12/29/18 17:36 Dose: 0.5 mg Hydromorphone HCl (Dilaudid) 0.5 mg IVPUSH ONETIME ONE Stop: 12/29/18 19:20 Last Admin: 12/29/18 19:22 Dose: 0.5 mg Hydromorphone HCl (Dilaudid) 1 mg IVPUSH ONETIME ONE Stop: 12/29/18 20:16 Last Admin: 12/29/18 20:23 Dose: 1 mg Iohexol (Omnipaque-300) 100 ml IVPUSH ONETIME ONE Stop: 12/29/18 16:44 Last Admin: 12/29/18 17:14 Dose: 100 ml Sodium Chloride (Saline Flush) 10 ml FLUSH ASDIRECTED PRN PRN Reason: Keep Vein Open Last Admin: 12/29/18 17:14 Dose: 10 ml - Problem List Review Problem List Initiated/Reviewed/Updated: Yes - My Orders Last 24 Hours: My Active Orders 12/29/18 20:15 Sodium Chloride 0.9% [Normal Saline] 1,000 ml IV ASDIRECTED 12/29/18 21:59 Acetaminophen/HYDROcodone [[place] 325-5 MG] 1 - 2 tab PO Q6H PRN 12/29/18 22:00 HYDROmorphone [Dilaudid] 0.5 mg IVPUSH Q2H PRN 12/29/18 22:01 Pulse Oximetry Continuous Monitoring [OM.PC] Routine 12/29/18 22:02 Resuscitation Status Routine 12/29/18 22:04 Neuro Check [RC] Q4HR 12/29/18 22:23 Antiembolic Devices [RC] 09,21 SCD [Sequential Compression Device] [OM.PC] Routine 12/29/18 22:45 Oxygen Therapy [RC] PRN 12/29/18 22:46 Communication Order [RC] BID 12/30/18 00:31 Vital Signs [RC] Q4HR 12/30/18 08:30 Incentive Breathing [RT Incentive Spirometry] [RC] ASDIRECTED 12/30/18 08:44 Patient Status [ADT] Routine 12/30/18 13:15 Sodium Chloride 0.9% [Saline Flush] 10 ml FLUSH ASDIRECTED PRN Convert IV to Saline Lock [OM.PC] Routine 12/30/18 15:00 Gabapentin [Neurontin] 600 mg PO TID 12/30/18 Breakfast Regular Diet [DIET] 12/31/18 08:00 Chest 1V Frontal [CR] Routine 12/31/18 09:00 Losartan [Cozaar] 25 mg PO DAILY amLODIPine [Norvasc] 5 mg PO DAILY - Plan Plan:: Mr. Crocker was uncomfortable during the night but without any shortness of breath . He was noted to have periods of apnea by the nursing staff He complaint of chest wall soreness on the right only no new problems PE GCS 15 pupils equal Lungs -- slight decrease in the right upper chest wall-- there is eccyhmosis on the upper back There is no gross subcut air PLAN 1> pneumo change to full admission follow up chest xray at noon---he may need a chest tube if it becomes sx 2--soft tissue contusion- 3--ac dislocation --no change will start the home med will need to discuss with Dr. Wiggins. Thank you I have seen the follow up chest xray --the pneumo is stable will cont to monitor i discussed with the patient and his will repeat the xray in the am start home medication saline lock the iv Dr. Alvarez
[2018-12-30] MEDS: Gabapentin 600 MG Tab PO SCH ×2 (14:00→20:00)
[2018-12-31] MEDS: HYDROmorphone 0.5 MG/0.5 ML Syringe IVPUSH PRN ×4 (04:21→22:23)
[2018-12-31] MEDS: Acetaminophen/HYDROcodone 325-5 MG Tab PO PRN ×3 (04:21→18:39)
[2018-12-31] MEDS: Gabapentin 600 MG Tab PO SCH ×3 (08:15→20:23)
[2018-12-31] MEDS: Losartan 25 MG Tab PO SCH (08:16)
[2018-12-31] MEDS: amLODIPine 5 MG Tab PO SCH (08:16)
--- NOTE | 2018-12-31 08:43 | CR ---
Chest: Frontal view of the chest was obtained utilizing portable technique. Comparison: Prior chest x-ray of 12/30/18. Right apical pneumothorax is seen. Findings are stable from prior chest x-ray. Slight atelectasis is again noted. Lungs otherwise are clear. Heart size is within normal limits. Tortuous thoracic aorta is seen. Right acromioclavicular separation is again seen. Impression: 1. Stable apical pneumothorax within the upper right chest. 2. Other incidental findings as noted above. Diagnostic code #3
--- NOTE | 2018-12-31 08:55 | PCM.PN ---
- General Info Date of Service: 12/31/18 - Patient Data Vitals - Most Recent: Last Vital Signs Temp 97.7 F 12/31/18 07:57 Pulse 78 12/31/18 07:57 Resp 16 12/31/18 04:07 BP 147/87 H 12/31/18 08:16 Pulse Ox 93 L 12/31/18 07:57 Weight - Most Recent: 228 lb 12.8 oz I&O - Last 24 Hours: Intake & Output 12/30/18 12/31/18 12/31/18 22:59 06:59 14:59 Intake Total 1340 1200 Output Total 350 Balance 990 1200 Med Orders - Current: Current Medications Hydrocodone Bitart/Acetaminophen ([place] 325-5 Mg) 1 - 2 tab PO Q6H PRN PRN Reason: Pain Last Admin: 12/31/18 04:21 Dose: 2 tab Amlodipine Besylate (Norvasc) 5 mg PO DAILY [facility] Last Admin: 12/31/18 08:16 Dose: 5 mg Gabapentin (Neurontin) 600 mg PO TID [facility] Last Admin: 12/31/18 08:15 Dose: 600 mg Hydromorphone HCl (Dilaudid) 0.5 mg IVPUSH Q2H PRN PRN Reason: Pain Last Admin: 12/31/18 08:09 Dose: 0.5 mg Losartan Potassium (Cozaar) 25 mg PO DAILY [facility] Last Admin: 12/31/18 08:16 Dose: 25 mg Sodium Chloride (Saline Flush) 10 ml FLUSH ASDIRECTED PRN PRN Reason: Keep Vein Open Discontinued Medications Hydromorphone HCl (Dilaudid) 0.5 mg IVPUSH ONETIME ONE Stop: 12/29/18 16:49 Last Admin: 12/29/18 16:52 Dose: 0.5 mg Hydromorphone HCl (Dilaudid) 0.5 mg IVPUSH ONETIME ONE Stop: 12/29/18 17:34 Last Admin: 12/29/18 17:36 Dose: 0.5 mg Hydromorphone HCl (Dilaudid) 0.5 mg IVPUSH ONETIME ONE Stop: 12/29/18 19:20 Last Admin: 12/29/18 19:22 Dose: 0.5 mg Hydromorphone HCl (Dilaudid) 1 mg IVPUSH ONETIME ONE Stop: 12/29/18 20:16 Last Admin: 12/29/18 20:23 Dose: 1 mg Sodium Chloride (Normal Saline) 1,000 mls @ 50 mls/hr IV ASDIRECTED JORGE Last Admin: 12/29/18 20:23 Dose: 50 mls/hr Iohexol (Omnipaque-300) 100 ml IVPUSH ONETIME ONE Stop: 12/29/18 16:44 Last Admin: 12/29/18 17:14 Dose: 100 ml Sodium Chloride (Saline Flush) 10 ml FLUSH ASDIRECTED PRN PRN Reason: Keep Vein Open Last Admin: 12/29/18 17:14 Dose: 10 ml - Problem List Review Problem List Initiated/Reviewed/Updated: Yes - My Orders Last 24 Hours: My Active Orders 12/30/18 08:30 Incentive Breathing [RT Incentive Spirometry] [RC] ASDIRECTED 12/30/18 08:44 Patient Status [ADT] Routine 12/30/18 13:15 Sodium Chloride 0.9% [Saline Flush] 10 ml FLUSH ASDIRECTED PRN Convert IV to Saline Lock [OM.PC] Routine 12/30/18 15:00 Gabapentin [Neurontin] 600 mg PO TID 12/31/18 09:00 Losartan [Cozaar] 25 mg PO DAILY amLODIPine [Norvasc] 5 mg PO DAILY - Plan Plan:: Mr. Crocker was uncomfortable during the night but without any shortness of breath . He was noted to have periods of apnea by the nursing staff He complaint of chest wall soreness on the right only no new problems PE GCS 15 pupils equal Lungs -- slight decrease in the right upper chest wall-- there is eccyhmosis on the upper back There is no gross subcut air PLAN 1> pneumo change to full admission follow up chest xray at noon---he may need a chest tube if it becomes sx 2--soft tissue contusion- 3--ac dislocation --no change will start the home med will need to discuss with Dr. Wiggins. Thank you I have seen the follow up chest xray --the pneumo is stable will cont to monitor i discussed with the patient and his will repeat the xray in the am start home medication saline lock the iv Dr. Alvarez December 31, 2018 8:50 AM THe patient had a better night. no episodes of SOB his major complaint is that of the shoulder and his chronic back pain. PE--- lungs--breath sounds are present anteriorly on the right upper but still decreased upper posterior we removed the oxygen--he maintained saturations above 90% for over 10 minutes. If it dipped --with a deep breath improved rt shoulder area with bruising IMP xray reviewed--stable with some improvement in the pneumo by my reading IMP--steady progress today the plan is to wean the oxygen and to increase his activity hopefully by tomorrow am will be able to see more improvement in the pneumo and he will be off the oxygen will have ortho see the ac dislocation the patient and the had no additional questions thank you Dr. Alvarez
[2019-01-01] MEDS: Acetaminophen/HYDROcodone 325-5 MG Tab PO PRN ×4 (01:16→20:16)
[2019-01-01] MEDS: HYDROmorphone 0.5 MG/0.5 ML Syringe IVPUSH PRN ×6 (04:34→21:03)
[2019-01-01] MEDS: Gabapentin 600 MG Tab PO SCH ×5 (07:36→21:02)
--- NOTE | 2019-01-01 08:00 | PCM.PN ---
- General Info Date of Service: 01/01/19 - Patient Data Vitals - Most Recent: Last Vital Signs Temp 97.9 F 01/01/19 04:37 Pulse 91 01/01/19 04:37 Resp 16 01/01/19 04:37 BP 160/99 H 01/01/19 04:37 Pulse Ox 94 L 01/01/19 04:37 Weight - Most Recent: 230 lb 12.8 oz I&O - Last 24 Hours: Intake & Output 12/31/18 01/01/19 01/01/19 22:59 06:59 14:59 Intake Total 900 600 Output Total 3 Balance 900 597 Med Orders - Current: Current Medications Hydrocodone Bitart/Acetaminophen ([place] 325-5 Mg) 1 - 2 tab PO Q6H PRN PRN Reason: Pain Last Admin: 01/01/19 07:36 Dose: 2 tab Amlodipine Besylate (Norvasc) 5 mg PO DAILY [facility] Last Admin: 12/31/18 08:16 Dose: 5 mg Gabapentin (Neurontin) 600 mg PO TID [facility] Last Admin: 01/01/19 07:36 Dose: 600 mg Hydromorphone HCl (Dilaudid) 0.5 mg IVPUSH Q2H PRN PRN Reason: Pain Last Admin: 01/01/19 04:34 Dose: 0.5 mg Losartan Potassium (Cozaar) 25 mg PO DAILY [facility] Last Admin: 12/31/18 08:16 Dose: 25 mg Sodium Chloride (Saline Flush) 10 ml FLUSH ASDIRECTED PRN PRN Reason: Keep Vein Open Discontinued Medications Hydromorphone HCl (Dilaudid) 0.5 mg IVPUSH ONETIME ONE Stop: 12/29/18 16:49 Last Admin: 12/29/18 16:52 Dose: 0.5 mg Hydromorphone HCl (Dilaudid) 0.5 mg IVPUSH ONETIME ONE Stop: 12/29/18 17:34 Last Admin: 12/29/18 17:36 Dose: 0.5 mg Hydromorphone HCl (Dilaudid) 0.5 mg IVPUSH ONETIME ONE Stop: 12/29/18 19:20 Last Admin: 12/29/18 19:22 Dose: 0.5 mg Hydromorphone HCl (Dilaudid) 1 mg IVPUSH ONETIME ONE Stop: 12/29/18 20:16 Last Admin: 12/29/18 20:23 Dose: 1 mg Sodium Chloride (Normal Saline) 1,000 mls @ 50 mls/hr IV ASDIRECTED JORGE Last Admin: 12/29/18 20:23 Dose: 50 mls/hr Iohexol (Omnipaque-300) 100 ml IVPUSH ONETIME ONE Stop: 12/29/18 16:44 Last Admin: 12/29/18 17:14 Dose: 100 ml Sodium Chloride (Saline Flush) 10 ml FLUSH ASDIRECTED PRN PRN Reason: Keep Vein Open Last Admin: 12/29/18 17:14 Dose: 10 ml - Exam Physical Findings Comments:: Patient feels much better off oxygen all night ambulating without issue HE WANTS TO GO HOME PE sat are greater than 90 % on room Lungs--improved breath sounds on the upper posterior improved bs on the upper anterior chest no gross ankle edema (he has been ambulatin eccy of the right shoulder without change. IMP 1-clinically stable pneumo on the right with improvement clinically however the xray demonstrates that the pneumo has increased in size which is surprising considering he looks better. I discussed this with the patient and stated that he is not able to go home with this finding. I explained that a chest tube is indicated. He was not happy about this and I understand due to the fact that he feels better. Therefore, the plan will be to repeat the xray at 1 o clock today because if it has not improved --chest tube. He is now NPO so that this can be done in the or with sedation. I am signing out to DR. Thompson as he is now the surgeon of record. 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 Wiggins --- I spoke with him at 8AM today --once he is discharged No additional questions Dr. Alvarez - Problem List Review Problem List Initiated/Reviewed/Updated: Yes - My Orders Last 24 Hours: My Active Orders 12/31/18 09:00 Losartan [Cozaar] 25 mg PO DAILY amLODIPine [Norvasc] 5 mg PO DAILY 12/31/18 13:31 Consult to Physician [CONS] Routine 12/31/18 13:32 Notify Provider Consults [RC] ASDIRECTED 12/31/18 14:12 Durable Medical Equipment for Discharge [DME for Discharge] [COMM] Routine 01/01/19 07:00 Chest 1V Frontal [CR] Routine - Plan Plan:: Mr. Crocker was uncomfortable during the night but without any shortness of breath . He was noted to have periods of apnea by the nursing staff He complaint of chest wall soreness on the right only no new problems PE GCS 15 pupils equal Lungs -- slight decrease in the right upper chest wall-- there is eccyhmosis on the upper back There is no gross subcut air PLAN 1> pneumo change to full admission follow up chest xray at noon---he may need a chest tube if it becomes sx 2--soft tissue contusion- 3--ac dislocation --no change will start the home med will need to discuss with Dr. Wiggins. Thank you I have seen the follow up chest xray --the pneumo is stable will cont to monitor i discussed with the patient and his will repeat the xray in the am start home medication saline lock the iv Dr. Alvarez December 31, 2018 8:50 AM THe patient had a better night. no episodes of SOB his major complaint is that of the shoulder and his chronic back pain. PE--- lungs--breath sounds are present anteriorly on the right upper but still decreased upper posterior we removed the oxygen--he maintained saturations above 90% for over 10 minutes. If it dipped --with a deep breath improved rt shoulder area with bruising IMP xray reviewed--stable with some improvement in the pneumo by my reading IMP--steady progress today the plan is to wean the oxygen and to increase his activity hopefully by tomorrow am will be able to see more improvement in the pneumo and he will be off the oxygen will have ortho see the ac dislocation the patient and the had no additional questions thank you Dr. Alvarez
--- NOTE | 2019-01-01 08:04 | CONS ---
CONSULTING PHYSICIAN: Joe Osuna MD DATE OF CONSULTATION: 12/31/2018 HISTORY OF PRESENT ILLNESS: This is a 58-year-old [id number] male, who comes in after a cow charged on him and ran into him injuring his right upper extremity as well as right chest. The patient subsequently was seen in the Emergency Department and was found to have rib fractures as well as a right AC joint separation. The patient also had an apical pneumothorax and was admitted under the Trauma Service. The patient denies any previous pain or injury to the right upper extremity before this happened. He has been in a sling since it happened and has been admitted to the hospital and we were consulted by the Trauma team. The patient states that he had a loss of consciousness for about a minute or so, that is what his says. He denies any other injuries to the lower extremities or left upper extremity. PHYSICAL EXAMINATION: GENERAL: He is alert. He is in no acute distress. EXTREMITIES: The patient does have severe ecchymoses noted to the periscapular region as well as the right shoulder region. He does have tenderness to palpation over the AC joint. He is neurovascularly intact to the axillary, radial, ulnar, and median nerve distribution. Secondary to the injury, rotator cuff testing is not able to be performed. His left upper extremity, he is moving freely with no signs of pain. Bilateral lower extremities, he reports no pain and is able to move freely without difficulty. There is no skin tenting noted to the right AC joint. IMAGING DATA: Radiographs were reviewed showing a grade 2 AC joint separation in the right shoulder. ASSESSMENT: Grade 2 AC joint separation, right shoulder. PLAN: At this time, I did discuss with the patient that this is very mildly displaced, not even 100% displaced, and secondary to his age as well as the minimal displacement, I do believe that this will heal very well without surgical intervention at this time. The patient is to have the sling for 2 weeks and then begin gentle range of motion below shoulder level for the next 4 weeks. After that, in 6 weeks' time, we will begin the patient do strengthening as well as overhead motions. During his stay, he can just keep it in the sling. The patient will follow up with us roughly in 3 weeks' time in clinic, where hopefully we can get him into formal physical therapy if it is needed. MMODAL /[id number]
--- NOTE | 2019-01-01 08:35 | CR ---
Chest: Portable view of the chest was obtained. Comparison: Prior chest x-ray of 12/30/[address] of 12/29/18. Heart size is normal. Tortuous thoracic aorta is seen. Right sided apical pneumothorax is seen and has minimally increased in size from previous study. Mild atelectasis is again noted. Lungs otherwise are clear. Bony structures are unchanged. Impression: 1. Minimally increased size of right apical pneumothorax. 2. Incidental atelectasis. Diagnostic code #3
[2019-01-01] MEDS: amLODIPine 5 MG Tab PO SCH (09:19)
[2019-01-01] MEDS: Losartan 25 MG Tab PO SCH (09:20)
--- NOTE | 2019-01-01 13:55 | CR ---
Chest: Portable view of the chest was obtained. Comparison: Prior chest x-ray performed earlier on the same date (7:54 AM). Chest tube is seen. Tip lies within the mid chest. Small apical pneumothorax remains which has diminished in amount from previous exam. Lungs otherwise are clear. Heart size is normal. Tortuous thoracic aorta is seen. Bony structures are unchanged. Impression: 1. Interval right-sided chest tube within the mid right chest. Small apical pneumothorax is seen but diminished in amount from prior exam. 2. Other incidental findings. Diagnostic code #3
[2019-01-01] MEDS: Lidocaine 1% 10 ML MDV INJECT ONE (14:00)
[2019-01-01] MEDS ORDERED: Docusate Sodium 100 MG Cap PO PRN (16:50)
[2019-01-02] MEDS: HYDROmorphone 0.5 MG/0.5 ML Syringe IVPUSH PRN ×5 (00:33→11:37)
[2019-01-02] MEDS: Acetaminophen/HYDROcodone 325-5 MG Tab PO PRN ×2 (02:59→08:45)
--- NOTE | 2019-01-02 07:56 | PROC ---
DATE OF OPERATION: 01/01/2019 SURGEON: Fernando Paris MD PREOPERATIVE DIAGNOSIS: Right pneumothorax, traumatic. POSTOPERATIVE DIAGNOSIS: Right pneumothorax, traumatic. OPERATION PERFORMED: Placement of a 20-[place] chest tube in the right 5th intercostal space. ANESTHESIA: Done under local anesthetic 1% Xylocaine without epinephrine and Dilaudid. INDICATIONS: The patient has had a pneumothorax after an encounter with a bull and has developed a small pneumothorax, which was watched and has progressed. DESCRIPTION OF PROCEDURE: The patient was seen at the bedside. After informed consent was obtained, the left 5th intercostal space at the anterior axillary line was chosen. The skin was prepped and draped off in a sterile fashion, anesthetized with 1% Xylocaine. An incision was made by finger dissection and carried down to the surface of the rib and onto the anterior surface of the rib. An opening in the chest cavity was made and this was followed by a 20-[place] chest tube. It was connected to the Heimlich valve and asked the patient to cough and the flutter of the valve was audible. The chest tube was then sutured in place with 0 silk and dressed with a Xeroform gauze and 4x4s and taped in a standard fashion. Chest x-ray was obtained. The patient tolerated the procedure and instructed in care of the Heimlich valve and will be followed up in the clinic. ESTIMATED BLOOD LOSS: MMODAL /[id number]
[2019-01-02] MEDS: amLODIPine 5 MG Tab PO SCH (08:45)
[2019-01-02] MEDS: Gabapentin 600 MG Tab PO SCH ×3 (08:46→20:50)
[2019-01-02] MEDS: Losartan 25 MG Tab PO SCH (08:46)
--- NOTE | 2019-01-02 11:09 | CR ---
Chest: PA and lateral views of the chest are obtained. Comparison: Previous chest x-ray of 01/01/19. Right-sided chest tube has been repositioned. Very minimal apical pneumothorax remains. This is fairly stable from most recent exam. Atelectasis is seen within the right midlung. Left lung is clear. Heart size is normal. Tortuous thoracic aorta is seen. Bony structures are unchanged. Impression: 1. Repositioning of right-sided chest tube. 2. Small apical pneumothorax remains which is stable from most recent exam. 3. Small increased atelectasis seen within the right midlung. Diagnostic code #3
--- NOTE | 2019-01-02 11:32 | PCM.CONS ---
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 In the emergency room he had a CT scan of the head, neck, and chest which were all normal. X-ray of the right shoulder AC joint did demonstrate an apical pneumo and expiratory films confirmed the pneumothorax. Patient was admitted for observation for repeat chest x-ray since [place] so [place] away. Yesterday was decided that the patient would get a chest tube because the pneumothorax increased in size. I was constantly the today because patient had increasing hypoxemia and chest pain. Overnight patient was placed on 2 L nasal cannula because his O2 sats dropped to 85% on room air. Patient has been walking in the halls, but did refuse SCDs according to nursing. When I examined him at 11:15 patient was off of O2 and sats were 93%. Patient did complain of worsening chest pain since the chest tube was inserted. Patient states that he is unable to do as well on his incentive spirometer since chest tube placement secondary to pain. Patient is on hydrocodone on every 6 hours and Dilaudid as needed. He tries not to take the Dilaudid if necessary. Patient is resting comfortably and chest tube continues to drain. I reviewed the chest x-ray with Dr. Reyes, in radiology, who felt the pneumothorax was similar to yesterday's examination, but there was more atelectasis on the right side than yesterday. Right Shoulder Pain Score (Numeric/FACES): 5 Right Chest Pain Score (Numeric/FACES): 8 - Related Data Allergies/Adverse Reactions: Allergies Allergy/AdvReac Type Severity Reaction Status Date / Time No Known Allergies Allergy Verified 12/29/18 16:40 Home Medications: Home Meds Acetaminophen with Codeine [Acetamin-Codein 300-30 mg/12.5] 12.5 ml PO Q4H PRN 12/29/18 [History] Gabapentin [Neurontin] 600 mg PO TID 12/29/18 [History] Losartan [Cozaar] 50 mg PO DAILY 12/29/18 [History] Meloxicam 15 mg PO DAILY 12/29/18 [History] Omeprazole 20 mg PO DAILY 12/29/18 [History] amLODIPine [Norvasc] 5 mg PO DAILY 12/29/18 [History] traMADol [Ultram] 50 mg PO BID 12/29/18 [History] Past Medical History HEENT History: Reports: Impaired Vision Cardiovascular History: Reports: Hypertension Musculoskeletal History: Reports: Other (See Below) Other Musculoskeletal History: back pain, pinched nerve- surgery scheduled middle of December 2018 Neurological History: Reports: Concussion Endocrine/Metabolic History: Reports: Obesity/BMI 30+ - Infectious Disease History Infectious Disease History: Reports: Hepatitis C - Past Surgical History HEENT Surgical History: Reports: Other (See Below) Other HEENT Surgeries/Procedures: dental implants Cardiovascular Surgical History: Reports: None GI Surgical History: Reports: Appendectomy Social & Family History - Family History Family Medical History: Noncontributory - Tobacco Use Smoking Status *Q: Never Smoker Used Tobacco, but Quit: Yes Month/Year Tobacco Last Used: 2016 Second Hand Smoke Exposure: No - Caffeine Use Caffeine Use: Reports: Coffee, Energy Drinks, Soda Other Caffeine Use: 3 cups coffee, large glasses - Recreational Drug Use Recreational Drug Use: No H&P Review of Systems - Review of Systems: Review Of Systems: ROS reveals no pertinent complaints other than HPI. Exam - Exam Exam: See Below - Vital Signs Vital Signs: Last Vital Signs Temp 98.2 F 01/02/19 08:44 Pulse 94 01/02/19 08:44 Resp 20 01/02/19 08:44 BP 133/95 H 01/02/19 08:46 Pulse Ox 93 L 01/02/19 08:44 Weight: 230 lb 9.6 oz - Exam Quality Assessment: No: Supplemental Oxygen General: Alert, Oriented HEENT: Conjunctiva Clear, EACs Clear, Normal Nasal Septum Neck: Supple, Trachea Midline Lungs: Clear to Auscultation, Normal Respiratory Effort Cardiovascular: Regular Rate, Regular Rhythm GI/Abdominal Exam: Normal Bowel Sounds, Soft, Non-Tender, No Organomegaly, No Distention Extremities: Normal Inspection, Normal Range of Motion, Non-Tender, No Pedal Edema Skin: Warm, Dry, Intact Neurological: Cranial Nerves Intact Neuro Extensive - Mental Status: Alert, Oriented x3 Neuro Extensive - Motor, Sensory, Reflexes: CN II-XII Intact Psychiatric: Alert, Normal Affect, Normal Mood - Patient Data Result Diagrams: 01/02/19 11:45 01/02/19 11:45 Consult PN Assessment/Plan POD#: 1 Procedures: Procedures COMPLETE CBC W/AUTO DIFF WBC (12/15/13) COMPREHEN METABOLIC PANEL (12/15/13) ROUTINE VENIPUNCTURE (12/15/13) (1) Hypoxemia SNOMED Code(s): 990394070 Code(s): R09.02 - HYPOXEMIA Current Visit: Yes (2) Acute pneumothorax SNOMED Code(s): 66549369 Code(s): J93.83 - OTHER PNEUMOTHORAX Current Visit: Yes Problem List Initiated/Reviewed/Updated: Yes My Orders Last 24 Hours: My Active Orders 01/02/19 11:29 COMPREHENSIVE METABOLIC PN,CMP [CHEM] Stat MAGNESIUM [CHEM] Stat PRO B-TYPE NATRIUR PEPT,BNPPRO [CHEM] Stat TROPONIN I [CHEM] Stat 01/02/19 11:30 BLOOD GAS ARTERIAL [BG] Stat 01/02/19 11:31 CBC WITH AUTO DIFF [HEME] Stat D Dimer [D-DIMER QUANTITATIVE] [COAG] Stat LACTIC ACID [CHEM] Stat Plan: right apical pneumothorax s/p chest tube placement postoperative day 1 With worsening hypoxemia and chest pain * Worsening hypoxemia is most likely secondary to atelectasis. * the differential includes: Pulmonary edema, pulmonary embolism, ME, worsening pneumothorax, pneumonia, poor history drive secondary to pain * CBC, CMP, lactic acid, d-dimer ( which I expect to be mildly elevated secondary to recent chest tube placement), troponin, proBNP, and magnesium * Encourage incentive spirometry and pain medicine regularly to stay ahead of the pain. WBC 9.69, hemoglobin 14.9, platelet 268, d-dimer 2.01, ABG pH 7.39, PCO2 46.3, PO2 64.0, HCO3 27.4, O2 saturation 90% on room air. Chemistry: Sodium slightly low at 134, up from 133 on December 29, 2018. Normal anion gap and renal function. Lactic acid 1.3, magnesium 2.0, troponin less than 0.017, proBNP of 44. EKG showed sinus tachycardia at 100 bpm. Early R-wave progression. CT angiogram will perform because of the slight elevation in his d-dimer, hypoxemia, chest pain and tachycardia. CT angiogram was negative for pulmonary embolism or aortic dissection. Patient above findings it appears patient's hypoxia secondary to worsening atelectasis and splinting secondary to pain. Patient was encouraged to use his incentive spirometer, walking the halls, and use pain meds judiciously. Thank you for consulting us on this case. Please feel free to call us back if anything else is needed. Requesting Provider: Fernando Thompson MD Date Consult Requested: 01/02/19 Patient History Reviewed: Yes Admission H&P Reviewed: Yes Notified Requestor: Yes Time Spent (in minutes): 90
--- NOTE | 2019-01-02 12:26 | PCM.SURGPN ---
- General Info Date of Service: 01/02/19 - Review of Systems Pulmonary: Reports: Shortness of Breath, Pleuritic Chest Pain - Patient Data Vitals - Most Recent: Last Vital Signs Temp 98.2 F 01/02/19 08:44 Pulse 94 01/02/19 08:44 Resp 20 01/02/19 08:44 BP 133/95 H 01/02/19 08:46 Pulse Ox 93 L 01/02/19 08:44 Weight - Most Recent: 104.598 kg I&O - Last 24 Hours: Intake & Output 01/01/19 01/02/19 01/02/19 23:59 07:59 15:59 Intake Total 1999 1250 120 Output Total Balance 1979 1220 120 Lab Results Last 24 Hrs: Laboratory Results - last 24 hr 01/02/19 Range/Units 11:45 WBC 9.69 H (4.23-9.07) K/mm3 RBC 4.96 (4.63-6.08) M/mm3 Hgb 14.9 (13.7-17.5) gm/L Hct 46.8 (40.1-51.0) % MCV 94.4 H (79.0-92.2) fl MCH 30.0 (25.7-32.2) pg MCHC 31.8 L (32.2-35.5) g/dl RDW Std Deviation 45.5 H (35.1-43.9) fL Plt Count 268 (163-337) K/mm3 MPV 10.0 (9.4-12.3) fl Neut % (Auto) 83.1 H (34.0-67.9) % Lymph % (Auto) 10.1 L (21.8-53.1) % [place] % (Auto) 5.4 (5.3-12.2) % Eos % (Auto) 0.6 L (0.8-7.0) Baso % (Auto) 0.1 (0.1-1.2) % Neut # (Auto) 8.05 H (1.78-5.38) K/mm3 Lymph # (Auto) 0.98 L (1.32-3.57) K/mm3 [place] # (Auto) 0.52 (0.30-0.82) K/mm3 Eos # (Auto) 0.06 (0.04-0.54) K/mm3 Baso # (Auto) 0.01 (0.01-0.08) K/mm3 Med Orders - Current: Current Medications Hydrocodone Bitart/Acetaminophen ([place] 325-5 Mg) 1 - 2 tab PO Q6H PRN PRN Reason: Pain Last Admin: 01/02/19 08:45 Dose: 2 tab Amlodipine Besylate (Norvasc) 5 mg PO DAILY [facility] Last Admin: 01/02/19 08:45 Dose: 5 mg Docusate Sodium (Colace) 100 mg PO BID PRN PRN Reason: Constipation Last Admin: 01/01/19 20:17 Dose: 100 mg Gabapentin (Neurontin) 600 mg PO TID [facility] Last Admin: 01/02/19 08:46 Dose: 600 mg Hydromorphone HCl (Dilaudid) 0.5 mg IVPUSH Q2H PRN PRN Reason: Pain Last Admin: 01/02/19 11:37 Dose: 0.5 mg Losartan Potassium (Cozaar) 25 mg PO DAILY [facility] Last Admin: 01/02/19 08:46 Dose: 25 mg Sodium Chloride (Saline Flush) 10 ml FLUSH ASDIRECTED PRN PRN Reason: Keep Vein Open Discontinued Medications Hydromorphone HCl (Dilaudid) 0.5 mg IVPUSH ONETIME ONE Stop: 12/29/18 16:49 Last Admin: 12/29/18 16:52 Dose: 0.5 mg Hydromorphone HCl (Dilaudid) 0.5 mg IVPUSH ONETIME ONE Stop: 12/29/18 17:34 Last Admin: 12/29/18 17:36 Dose: 0.5 mg Hydromorphone HCl (Dilaudid) 0.5 mg IVPUSH ONETIME ONE Stop: 12/29/18 19:20 Last Admin: 12/29/18 19:22 Dose: 0.5 mg Hydromorphone HCl (Dilaudid) 1 mg IVPUSH ONETIME ONE Stop: 12/29/18 20:16 Last Admin: 12/29/18 20:23 Dose: 1 mg Sodium Chloride (Normal Saline) 1,000 mls @ 50 mls/hr IV ASDIRECTED [facility] Last Admin: 12/29/18 20:23 Dose: 50 mls/hr Iohexol (Omnipaque-300) 100 ml IVPUSH ONETIME ONE Stop: 12/29/18 16:44 Last Admin: 12/29/18 17:14 Dose: 100 ml Lidocaine HCl (Xylocaine 1%) 10 ml INJECT ONETIME ONE Stop: 01/01/19 13:01 Last Admin: 01/01/19 14:00 Dose: 10 ml Sodium Chloride (Saline Flush) 10 ml FLUSH ASDIRECTED PRN PRN Reason: Keep Vein Open Last Admin: 12/29/18 17:14 Dose: 10 ml - Exam Lungs: Clear to Auscultation, Normal Respiratory Effort - Problem List Review Problem List Initiated/Reviewed/Updated: Yes - My Orders Last 24 Hours: Active Orders 24 hr Category Date Time Status BLOOD GAS ARTERIAL [BG] Stat Lab 01/02/19 11:30 Ordered COMPREHENSIVE METABOLIC PN,CMP [CHEM] Stat Lab 01/02/19 11:45 Received D Dimer [D-DIMER QUANTITATIVE] [COAG] Stat Lab 01/02/19 11:45 Received LACTIC ACID [CHEM] Stat Lab 01/02/19 11:45 Received MAGNESIUM [CHEM] Stat Lab 01/02/19 11:45 Received PRO B-TYPE NATRIUR PEPT,BNPPRO [CHEM] Stat Lab 01/02/19 11:45 Received TROPONIN I [CHEM] Stat Lab 01/02/19 11:45 Received Docusate Sodium [Colace] Med 01/01/19 16:50 Active 100 mg PO BID PRN Medication Orders Hydrocodone Bitart/Acetaminophen ([place] 325-5 Mg) 1 - 2 tab PO Q6H PRN PRN Reason: Pain Last Admin: 01/02/19 08:45 Dose: 2 tab Admin: 01/02/19 02:59 Dose: 2 tab Admin: 01/01/19 20:16 Dose: 2 tab Admin: 01/01/19 13:53 Dose: 2 tab Admin: 01/01/19 07:36 Dose: 2 tab Admin: 01/01/19 01:16 Dose: 2 tab Admin: 12/31/18 18:39 Dose: 2 tab Admin: 12/31/18 10:39 Dose: 2 tab Admin: 12/31/18 04:21 Dose: 2 tab Admin: 12/30/18 22:45 Dose: 2 tab Admin: 12/30/18 17:12 Dose: 2 tab Admin: 12/30/18 09:02 Dose: 2 tab Admin: 12/29/18 22:20 Dose: 2 tab Amlodipine Besylate (Norvasc) 5 mg PO DAILY [facility] Last Admin: 01/02/19 08:45 Dose: 5 mg Admin: 01/01/19 09:19 Dose: 5 mg Admin: 12/31/18 08:16 Dose: 5 mg Docusate Sodium (Colace) 100 mg PO BID PRN PRN Reason: Constipation Last Admin: 01/01/19 20:17 Dose: 100 mg Gabapentin (Neurontin) 600 mg PO TID [facility] Last Admin: 01/02/19 08:46 Dose: 600 mg Admin: 01/01/19 21:02 Dose: 600 mg Admin: 01/01/19 16:44 Dose: Not Given Admin: 01/01/19 13:55 Dose: 600 mg Admin: 01/01/19 09:20 Dose: Not Given Admin: 01/01/19 07:36 Dose: 600 mg Admin: 12/31/18 20:23 Dose: 600 mg Admin: 12/31/18 14:01 Dose: 600 mg Admin: 12/31/18 08:15 Dose: 600 mg Admin: 12/30/18 20:00 Dose: 600 mg Admin: 12/30/18 14:00 Dose: 600 mg Hydromorphone HCl (Dilaudid) 0.5 mg IVPUSH Q2H PRN PRN Reason: Pain Last Admin: 01/02/19 11:37 Dose: 0.5 mg Admin: 01/02/19 09:03 Dose: 0.5 mg Admin: 01/02/19 07:09 Dose: 0.5 mg Admin: 01/02/19 03:11 Dose: 0.5 mg Admin: 01/02/19 00:33 Dose: 0.5 mg Admin: 01/01/19 21:03 Dose: 0.5 mg Admin: 01/01/19 18:47 Dose: 0.5 mg Admin: 01/01/19 16:41 Dose: 0.5 mg Admin: 01/01/19 12:45 Dose: 0.5 mg Admin: 01/01/19 10:22 Dose: 0.5 mg Admin: 01/01/19 04:34 Dose: 0.5 mg Admin: 12/31/18 22:23 Dose: 0.5 mg Admin: 12/31/18 16:01 Dose: 0.5 mg Admin: 12/31/18 08:09 Dose: 0.5 mg Admin: 12/31/18 04:21 Dose: 0.5 mg Admin: 12/30/18 22:48 Dose: 0.5 mg Admin: 12/30/18 19:57 Dose: 0.5 mg Admin: 12/30/18 13:59 Dose: 0.5 mg Admin: 12/30/18 10:36 Dose: 0.5 mg Admin: 12/30/18 06:44 Dose: 0.5 mg Admin: 12/30/18 03:52 Dose: 0.5 mg Admin: 12/30/18 00:32 Dose: 0.5 mg Losartan Potassium (Cozaar) 25 mg PO DAILY [facility] Last Admin: 01/02/19 08:46 Dose: 25 mg Admin: 01/01/19 09:20 Dose: 25 mg Admin: 12/31/18 08:16 Dose: 25 mg Sodium Chloride (Saline Flush) 10 ml FLUSH ASDIRECTED PRN PRN Reason: Keep Vein Open - Plan Plan (Free Text/Narrative):: CXR shows tube is working and atelectasis present this is consistent \ with exam and pt complaint of difficulty cough because of of pain and decrease in the expiratory volume and incentive spirometer pt is on dialuid and Vicodin ass needs better pain meds to improve cough
[2019-01-02] MEDS: Acetaminophen/oxyCODONE 325-5 MG Tab PO PRN ×3 (12:47→21:33)
[2019-01-02] MEDS ORDERED: Iohexol 350 MG/ML 75 ML Bottle IVPUSH ONE ×2 (13:33→13:42)
[2019-01-02] MEDS ORDERED: Sodium Chloride 0.9% 10 ML Syringe FLUSH PRN (13:41)
[2019-01-02] MEDS ORDERED: Sodium Chloride 0.9% 100 ML IV SCH ×2 (13:45)
[2019-01-02] MEDS: Heparin Sodium 5,000 Units/ML Vial SUBCUT SCH (20:48)
[2019-01-02] MEDS: Docusate Sodium 100 MG Cap PO SCH (20:50)
[2019-01-02] MEDS: Ketorolac 30 MG/ML SDV IVPUSH PRN (20:50)
[2019-01-03] MEDS: Acetaminophen/oxyCODONE 325-5 MG Tab PO PRN ×2 (04:39→09:22)
[2019-01-03] MEDS: Ketorolac 30 MG/ML SDV IVPUSH PRN (07:56)
[2019-01-03] MEDS: Heparin Sodium 5,000 Units/ML Vial SUBCUT SCH (08:00)
--- NOTE | 2019-01-03 08:03 | PCM.CONSN ---
- General Info Date of Service: 01/03/19 - Patient Data Vitals - Most Recent: Last Vital Signs Temp 98.2 F 01/03/19 04:38 Pulse 91 01/03/19 04:38 Resp 14 01/03/19 04:38 BP 114/73 01/03/19 04:38 Pulse Ox 92 L 01/03/19 04:38 Weight - Most Recent: 103.464 kg I&O - Last 24 Hours: Intake & Output 01/02/19 01/03/19 01/03/19 23:59 07:59 15:59 Intake Total 1040 1000 Output Total 50 30 Balance 990 970 Lab Results Last 24 Hours: Laboratory Results - last 24 hr 01/02/19 01/02/19 01/02/19 Range/Units 11:45 11:45 11:45 WBC 9.69 H (4.23-9.07) K/mm3 RBC 4.96 (4.63-6.08) M/mm3 Hgb 14.9 (13.7-17.5) gm/L Hct 46.8 (40.1-51.0) % MCV 94.4 H (79.0-92.2) fl MCH 30.0 (25.7-32.2) pg MCHC 31.8 L (32.2-35.5) g/dl RDW Std Deviation 45.5 H (35.1-43.9) fL Plt Count 268 (163-337) K/mm3 MPV 10.0 (9.4-12.3) fl Neut % (Auto) 83.1 H (34.0-67.9) % Lymph % (Auto) 10.1 L (21.8-53.1) % [place] % (Auto) 5.4 (5.3-12.2) % Eos % (Auto) 0.6 L (0.8-7.0) Baso % (Auto) 0.1 (0.1-1.2) % Neut # (Auto) 8.05 H (1.78-5.38) K/mm3 Lymph # (Auto) 0.98 L (1.32-3.57) K/mm3 [place] # (Auto) 0.52 (0.30-0.82) K/mm3 Eos # (Auto) 0.06 (0.04-0.54) K/mm3 Baso # (Auto) 0.01 (0.01-0.08) K/mm3 D-Dimer, Quantitative (0.19-0.50) mg/L Puncture Site ABG pH (7.35-7.45) ABG pCO2 (35.0-45.0) mmHg ABG pO2 (80.0-100.0) mmHg ABG HCO3 (22.0-26.0) meq/L ABG O2 Saturation (96.0-97.0) % ABG Base Excess (-2-2.0) Ken Test A-a Gradient mmHg O2 Delivery Device Sodium 134 L (136-145) mEq/L Potassium 4.0 (3.5-5.1) mEq/L Chloride 97 L (98-107) mEq/L Carbon Dioxide 29 (21-32) mEq/L Anion Gap 12.0 (5-15) BUN 16 (7-18) mg/dL Creatinine 0.7 (0.7-1.3) mg/dL Est Cr Clr Drug Dosing 115.87 mL/min Estimated GFR (MDRD) > 60 (>60) mL/min BUN/Creatinine Ratio 22.9 H (14-18) Glucose 163 H (74-106) mg/dL Lactic Acid (0.4-2.0) mmol/L Calcium 8.9 (8.5-10.1) mg/dL Magnesium 2.0 (1.8-2.4) mg/dl Total Bilirubin 0.8 (0.2-1.0) mg/dL AST 27 (15-37) U/L ALT 48 (16-63) U/L Alkaline Phosphatase 82 (46-116) U/L Troponin I < 0.017 (0.00-0.056) ng/mL NT-Pro-B Natriuret Pep 44 (0-125) pg/mL Total Protein 7.5 (6.4-8.2) g/dl Albumin 3.9 (3.4-5.0) g/dl Globulin 3.6 gm/dL Albumin/Globulin Ratio 1.1 (1-2) 01/02/19 01/02/19 01/02/19 Range/Units 11:45 11:45 12:55 WBC (4.23-9.07) K/mm3 RBC (4.63-6.08) M/mm3 Hgb (13.7-17.5) gm/L Hct (40.1-51.0) % MCV (79.0-92.2) fl MCH (25.7-32.2) pg MCHC (32.2-35.5) g/dl RDW Std Deviation (35.1-43.9) fL Plt Count (163-337) K/mm3 MPV (9.4-12.3) fl Neut % (Auto) (34.0-67.9) % Lymph % (Auto) (21.8-53.1) % [place] % (Auto) (5.3-12.2) % Eos % (Auto) (0.8-7.0) Baso % (Auto) (0.1-1.2) % Neut # (Auto) (1.78-5.38) K/mm3 Lymph # (Auto) (1.32-3.57) K/mm3 [place] # (Auto) (0.30-0.82) K/mm3 Eos # (Auto) (0.04-0.54) K/mm3 Baso # (Auto) (0.01-0.08) K/mm3 D-Dimer, Quantitative 2.01 H (0.19-0.50) mg/L Puncture Site Lt radial ABG pH 7.39 (7.35-7.45) ABG pCO2 46.3 H (35.0-45.0) mmHg ABG pO2 64.0 L (80.0-100.0) mmHg ABG HCO3 27.4 H (22.0-26.0) meq/L ABG O2 Saturation 90.0 L (96.0-97.0) % ABG Base Excess 2.3 H (-2-2.0) Ken Test Positive A-a Gradient 13 mmHg O2 Delivery Device Room air Sodium (136-145) mEq/L Potassium (3.5-5.1) mEq/L Chloride (98-107) mEq/L Carbon Dioxide (21-32) mEq/L Anion Gap (5-15) BUN (7-18) mg/dL Creatinine (0.7-1.3) mg/dL Est Cr Clr Drug Dosing mL/min Estimated GFR (MDRD) (>60) mL/min BUN/Creatinine Ratio (14-18) Glucose (74-106) mg/dL Lactic Acid 1.3 (0.4-2.0) mmol/L Calcium (8.5-10.1) mg/dL Magnesium (1.8-2.4) mg/dl Total Bilirubin (0.2-1.0) mg/dL AST (15-37) U/L ALT (16-63) U/L Alkaline Phosphatase (46-116) U/L Troponin I (0.00-0.056) ng/mL NT-Pro-B Natriuret Pep (0-125) pg/mL Total Protein (6.4-8.2) g/dl Albumin (3.4-5.0) g/dl Globulin gm/dL Albumin/Globulin Ratio (1-2) Med Orders - Current: Current Medications Amlodipine Besylate (Norvasc) 5 mg PO DAILY [facility] Last Admin: 01/02/19 08:45 Dose: 5 mg Docusate Sodium (Colace) 100 mg PO BID PRN PRN Reason: Constipation Last Admin: 01/01/19 20:17 Dose: 100 mg Docusate Sodium (Colace) 100 mg PO BID [facility] Last Admin: 01/02/19 20:50 Dose: 100 mg Gabapentin (Neurontin) 600 mg PO TID [facility] Last Admin: 01/02/19 20:50 Dose: 600 mg Heparin Sodium (Porcine) (Heparin Sodium) 5,000 units SUBCUT BID@0800,2000 [facility] Last Admin: 01/02/19 20:48 Dose: 5,000 units Ketorolac Tromethamine (Toradol) 30 mg IVPUSH Q6H PRN PRN Reason: Pain Last Admin: 01/03/19 07:56 Dose: 30 mg Losartan Potassium (Cozaar) 25 mg PO DAILY [facility] Last Admin: 01/02/19 08:46 Dose: 25 mg Oxycodone/Acetaminophen (Percocet 325-5 Mg) 1 tab PO Q4H PRN PRN Reason: Pain Last Admin: 01/03/19 04:39 Dose: 1 tab Sodium Chloride (Saline Flush) 10 ml FLUSH ASDIRECTED PRN PRN Reason: Keep Vein Open Last Admin: 01/02/19 13:52 Dose: 10 ml Discontinued Medications Hydrocodone Bitart/Acetaminophen ([place] 325-5 Mg) 1 - 2 tab PO Q6H PRN PRN Reason: Pain Last Admin: 01/02/19 08:45 Dose: 2 tab Hydromorphone HCl (Dilaudid) 0.5 mg IVPUSH ONETIME ONE Stop: 12/29/18 16:49 Last Admin: 12/29/18 16:52 Dose: 0.5 mg Hydromorphone HCl (Dilaudid) 0.5 mg IVPUSH ONETIME ONE Stop: 12/29/18 17:34 Last Admin: 12/29/18 17:36 Dose: 0.5 mg Hydromorphone HCl (Dilaudid) 0.5 mg IVPUSH ONETIME ONE Stop: 12/29/18 19:20 Last Admin: 12/29/18 19:22 Dose: 0.5 mg Hydromorphone HCl (Dilaudid) 1 mg IVPUSH ONETIME ONE Stop: 12/29/18 20:16 Last Admin: 12/29/18 20:23 Dose: 1 mg Hydromorphone HCl (Dilaudid) 0.5 mg IVPUSH Q2H PRN PRN Reason: Pain Last Admin: 01/02/19 11:37 Dose: 0.5 mg Sodium Chloride (Normal Saline) 1,000 mls @ 50 mls/hr IV ASDIRECTED [facility] Last Admin: 12/29/18 20:23 Dose: 50 mls/hr Sodium Chloride (Normal Saline) 100 [facility]ls [facility] Stop: 01/02/19 16:00 Last Admin: 01/02/19 13:52 Dose: 80 mls/hr Sodium Chloride (Normal Saline) 100 mls @ 80 mls/hr IV ASDIRECTED [facility] Stop: 01/02/19 17:00 Iohexol (Omnipaque-300) 100 ml IVPUSH ONETIME ONE Stop: 12/29/18 16:44 Last Admin: 12/29/18 17:14 Dose: 100 ml Iohexol (Omnipaque) 75 ml IVPUSH ONETIME ONE Stop: 01/02/19 13:34 Last Admin: 01/02/19 13:52 Dose: 75 ml Iohexol (Omnipaque) 75 ml IVPUSH ONETIME ONE Stop: 01/02/19 13:43 Last Admin: 01/02/19 21:39 Dose: Not Given Lidocaine HCl (Xylocaine 1%) 10 ml INJECT ONETIME ONE Stop: 01/01/19 13:01 Last Admin: 01/01/19 14:00 Dose: 10 ml Sodium Chloride (Saline Flush) 10 ml FLUSH ASDIRECTED PRN PRN Reason: Keep Vein Open Last Admin: 12/29/18 17:14 Dose: 10 ml Sodium Chloride (Saline Flush) 10 ml FLUSH ONETIME PRN PRN Reason: KEEP VEIN OPEN Stop: 01/02/19 17:00 Consult PN Assessment/Plan Procedures: Procedures COMPLETE CBC W/AUTO DIFF WBC (12/15/13) COMPREHEN METABOLIC PANEL (12/15/13) ROUTINE VENIPUNCTURE (12/15/13) Problem List Initiated/Reviewed/Updated: Yes My Orders Last 24 Hours: My Active Orders 01/02/19 12:27 Acetaminophen/oxyCODONE [Percocet 325-5 MG] 1 tab PO Q4H PRN 01/02/19 20:25 Ketorolac [Toradol] 30 mg IVPUSH Q6H PRN 01/02/19 20:30 Heparin Sodium 5,000 units SUBCUT BID@0800,199901/02/19 21:00 Docusate Sodium [Colace] 100 mg PO BID 01/05/19 07:00 CBC W/O DIFF,HEMOGRAM [HEME] MOTH@0701/08/19 07:00 CBC W/O DIFF,HEMOGRAM [HEME] MOTH@0700 01/12/19 07:00 CBC W/O DIFF,HEMOGRAM [HEME] MOTH@0701/15/19 07:00 CBC W/O DIFF,HEMOGRAM [HEME] MOTH@0700 01/19/19 07:00 CBC W/O DIFF,HEMOGRAM [HEME] MOTH@0700 01/22/19 07:00 CBC W/O DIFF,HEMOGRAM [HEME] MOTH@0700 Plan: discharge dictated [email or web address]
[2019-01-03] MEDS: Losartan 25 MG Tab PO SCH (08:09)
[2019-01-03] MEDS: Gabapentin 600 MG Tab PO SCH (08:09)
[2019-01-03] MEDS: amLODIPine 5 MG Tab PO SCH (08:10)
[2019-01-03] MEDS: Docusate Sodium 100 MG Cap PO SCH (08:10)
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
--- NOTE | 2019-01-05 08:08 | CT ---
CT chest Technique: Multiple sections were obtained from above the lung apices inferiorly through the lung bases. Intravenous contrast was utilized. Study has been performed as a pulmonary angiogram protocol. Comparison: Prior chest CT of 12/29/18. Findings: Mediastinum and hilar regions show no adenopathy or mass. Pulmonary arteries are fairly well-opacified. No filling defects are seen to indicate pulmonary embolism. Subcutaneous air is noted within the right chest. Right sided chest tube is seen. Atelectasis noted posteriorly within the right lung involving both upper and lower lung. Small anterior pneumothorax is seen within the right lung. Lungs otherwise are clear. Right acromioclavicular separation is again seen. Previous fracture within the fourth rib is poorly seen on current CT study but is felt to be present. Heart does not appear enlarged. Small hiatal hernia is seen. Small portion of the visualized upper abdominal structures are within normal limits. Impression: 1. No findings of pulmonary embolism. 2. Right sided chest tube with atelectasis seen within the posterior right lung. Minimal anterior pneumothorax is seen. 3. Other stable findings. Diagnostic code #3 I agree with preliminary report from [facility], finalized on 01/02/19, 3:11 PM Central Time
== END 2019-01-03 10:28 | disposition home or self-care (01) | DRG 200 ==
LOC: JD.ED 16:32 → JD.MS 20:24 → OBSVTOIN 12-30 08:44 → JD.MS 12-30 09:45
PROVIDERS: ADMIT Surgery; ATTEND Surgery
PROC: 0W9930Z Drainage of Right Pleural Cavity with Drainage Device, Percutaneous Approach (ICD-10-PCS; principal; 2019-01-01)
DX: S27.0XXA Traumatic pneumothorax, initial encounter (principal); S06.0X1A Concussion with loss of consciousness of 30 minutes or less, initial encounter; S22.31XA Fracture of one rib, right side, initial encounter for closed fracture; J98.11 Atelectasis; S43.101A Unspecified dislocation of right acromioclavicular joint, initial encounter; R09.02 Hypoxemia; H54.7 Unspecified visual loss; I10 Essential (primary) hypertension; E66.9 Obesity, unspecified; Z86.19 Personal history of other infectious and parasitic diseases; Z90.49 Acquired absence of other specified parts of digestive tract; W55.22XA Struck by cow, initial encounter; Z79.899 Other long term (current) drug therapy; Z87.891 Personal history of nicotine dependence; Z68.32 Body mass index [BMI] 32.0-32.9, adult
CPT/HCPCS: 36415; 36600; 70450; 70450-26; 71045; 71045-26; 71046; 71046-26; 71260; 71260-26; 71275; 71275-26; 72125; 72125-26; 73030-26-RT; 73030-RT; 74177; 74177-26; 80053; 80306; 81001; 82803; 83605; 83690; 83735; 83880; 84484; 85025; 85379; 93005; 94762; 96361; 96374; 96376; 99284; 99285-25; A9270-GY; G0378; G0480; J1170; J1644; J1885; J2001; J7030; J7040; Q9967

== ENCOUNTER 2021-09-21 11:05 | Emergency (ER) | payer OTHER ==
[2021-09-21] MEDS ORDERED: Ketorolac 30 MG/ML SDV IM ONE (11:58)
== END 2021-09-21 13:10 | disposition home or self-care (01) ==
LOC: JD.ED 11:05
DX: M54.42 Lumbago with sciatica, left side (principal); M54.41 Lumbago with sciatica, right side; I10 Essential (primary) hypertension; E66.9 Obesity, unspecified; Z68.38 Body mass index [BMI] 38.0-38.9, adult; Z79.899 Other long term (current) drug therapy; Z87.891 Personal history of nicotine dependence; Z98.1 Arthrodesis status
CPT/HCPCS: 72100; 96372; 99283; J1885; 99284

== ENCOUNTER 2022-03-02 11:41 | Emergency (ER) | payer OTHER ==
[2022-03-02] MEDS ORDERED: Sodium Chloride 0.9% 10 ML Syringe FLUSH PRN (12:31)
[2022-03-02 13:47] LABS: ESTIMATED GFR 85 mL/min (>60)
== END 2022-03-02 15:03 | disposition home or self-care (01) ==
LOC: JD.ED 11:41
DX: K92.2 Gastrointestinal hemorrhage, unspecified (principal); I10 Essential (primary) hypertension; E66.9 Obesity, unspecified; Z68.30 Body mass index [BMI] 30.0-30.9, adult; Z79.899 Other long term (current) drug therapy; Z20.822 Contact with and (suspected) exposure to COVID-19
CPT/HCPCS: 36415; 71046; 80053; 83540; 83880; 84439; 84443; 84466; 84484; 85025; 85379; 86140; 87635; 93005; 99285; J3490; U0002

== ENCOUNTER → 2022-03-07 | Day surgery (SDC) | payer OTHER ==
[~2022-03-07] MED LIST: Bupivacaine 0.5% 30 ML SDV ONE; Ketorolac 15 MG/ML SDV ONE; Lactated Ringers 1,000 ML IV SCH; Lactated Ringers 1,000 ML ONE; Lidocaine 1% 4 ML ONE; Lidocaine 1%/Sod Bicarbonate in NS 8.4% 1 ML Syringe IDERM PRN; Propofol 200 MG/20 ML SDV ONE; Sodium Chloride 0.9% 10 ML Syringe FLUSH SCH; fentaNYL 100 MCG/2 ML SDV ONE
== END | disposition home or self-care (01) ==
LOC: JD.SDS 11:55
PROVIDERS: ATTEND Surgery
DX: D12.3 Benign neoplasm of transverse colon (principal); D12.5 Benign neoplasm of sigmoid colon; K64.8 Other hemorrhoids; K22.70 Barrett's esophagus without dysplasia; D64.9 Anemia, unspecified; K44.9 Diaphragmatic hernia without obstruction or gangrene; K57.30 Diverticulosis of large intestine without perforation or abscess without bleeding; K31.89 Other diseases of stomach and duodenum; I10 Essential (primary) hypertension; G47.33 Obstructive sleep apnea (adult) (pediatric); E66.9 Obesity, unspecified; Z87.891 Personal history of nicotine dependence; Z90.49 Acquired absence of other specified parts of digestive tract; Z79.899 Other long term (current) drug therapy; Z68.31 Body mass index [BMI] 31.0-31.9, adult
CPT/HCPCS: 43239; 45380; 46221; J1885; J2704; J3010; J3490; J7120; 00813

== ENCOUNTER 2022-03-22 12:12 | Emergency (ER) | payer OTHER ==
[2022-03-22] MEDS ORDERED: Aspirin 81 MG Tab.Chew PO ONE (12:48)
[2022-03-22] MEDS ORDERED: Nitroglycerin 0.4 MG Tab.SL SL PRN (12:49)
[2022-03-22] MEDS ORDERED: Sodium Chloride 0.9% 1,000 ML IV SCH (13:00)
[2022-03-22] MEDS ORDERED: Heparin Sodium 5,000 Units/ML Vial IVPUSH ONE (13:04)
[2022-03-22] MEDS ORDERED: Heparin Sodium/D5W 25,000 UNITS/500 ML BAG IV SCH (13:15)
[2022-03-22] MEDS ORDERED: Clopidogrel 75 MG Tab PO ONE (13:34)
== END 2022-03-22 14:00 ==
LOC: JD.ED 12:12
DX: I21.3 ST elevation (STEMI) myocardial infarction of unspecified site (principal); I10 Essential (primary) hypertension; E66.9 Obesity, unspecified; Z68.31 Body mass index [BMI] 31.0-31.9, adult
CPT/HCPCS: 36415; 71045; 80053; 84484; 85025; 85610; 85730; 93005; 96365; 99285; A9270; J1644; J7030; 93010; 99284

== ENCOUNTER 2022-08-31 13:57 | Emergency (ER) | payer BC, OTHER ==
[2022-08-31] MEDS ORDERED: HYDROmorphone 0.5 MG/0.5 ML Syringe IVPUSH ONE (14:23)
[2022-08-31] MEDS ORDERED: Iopamidol 612 MG/ML 100 ML Bottle IVPUSH ONE (14:28)
[2022-08-31] MEDS ORDERED: Sodium Chloride 0.9% 10 ML Syringe FLUSH ONE (14:30)
[2022-08-31] MEDS: Sodium Chloride 0.9% 10 ML Syringe FLUSH PRN ×2 (14:43→15:19)
[2022-08-31] MEDS ORDERED: Iopamidol 612 MG/ML 50 ML SDV IVPUSH ONE (15:18)
== END 2022-08-31 16:12 | disposition home or self-care (01) ==
LOC: JD.ED 13:57
DX: M25.571 Pain in right ankle and joints of right foot (principal); M25.461 Effusion, right knee; I10 Essential (primary) hypertension; E66.9 Obesity, unspecified; Z68.32 Body mass index [BMI] 32.0-32.9, adult; W01.0XXA Fall on same level from slipping, tripping and stumbling without subsequent striking against object, initial encounter
CPT/HCPCS: 36415; 73562; 73610; 74177; 80053; 85025; 96374; 99284; J1170; J3490; Q9967

== ENCOUNTER 2022-11-26 08:44 | Day surgery (SDC) | payer BC ==
[~2022-11-26 08:44] MED LIST changes: +Acetaminophen 325 MG Tab PO SCH; -Bupivacaine 0.5% 30 ML SDV ONE; -Ketorolac 15 MG/ML SDV ONE; -Lactated Ringers 1,000 ML ONE; -Lidocaine 1% 4 ML ONE; +Morphine 8 MG, EPINEPHrine 0.3 MG, Cefuroxime 750 MG, Ketorolac 30 MG, Sodium Chloride ... PRN; +Pregabalin 25 MG Cap PO SCH; -Propofol 200 MG/20 ML SDV ONE; +Sodium Chloride 0.9% 10 ML Syringe FLUSH PRN; +Triamcinolone Acetonide 40 MG/ML 1 ML SDV ONE; +Vancomycin 1 GM SDV ONE; -fentaNYL 100 MCG/2 ML SDV ONE; +oxyCODONE ER 10 MG TAB.ER PO SCH
[2022-11-26] MEDS ORDERED: Bupivacaine 0.25% 10 ML SDV ONE (08:45)
[2022-11-26] MEDS ORDERED: Tranexamic Acid 1,000 MG/10 ML Vial ONE (08:45)
[2022-11-26] MEDS ORDERED: Propofol 200 MG/20 ML SDV ONE (11:01)
[2022-11-26] MEDS ORDERED: fentaNYL 100 MCG/2 ML SDV ONE ×3 (11:02→13:15)
[2022-11-26] MEDS ORDERED: Lidocaine 1% 4 ML ONE (11:02)
[2022-11-26] MEDS ORDERED: Midazolam 1 MG/ML 2 ML SDV ONE (11:02)
[2022-11-26] MEDS ORDERED: Ketamine 500 mg/10 ML MDV ONE (11:02)
[2022-11-26] MEDS ORDERED: ceFAZolin 2 GM Vial ONE (11:03)
[2022-11-26] MEDS ORDERED: Ropivacaine 0.5% 5 MG/ML 30 ML SDV ONE (11:07)
[2022-11-26] MEDS ORDERED: EPINEPHrine 1 MG/ML SDV ONE (11:07)
[2022-11-26] MEDS ORDERED: Phenylephrine 1% 10 MG/ML SDV ONE (11:30)
[2022-11-26] MEDS ORDERED: Ketorolac 30 MG/ML SDV ONE (12:29)
[2022-11-26] MEDS ORDERED: HYDROmorphone 1 MG/ML Syringe ONE (13:07)
[2022-11-26] MEDS ORDERED: fentaNYL 100 MCG/2 ML SDV IVPUSH PRN ×2 (13:20→13:54)
[2022-11-26] MEDS ORDERED: oxyCODONE 5 MG Tab PO SCH (13:23)
[2022-11-26] MEDS ORDERED: Ondansetron 4 MG/2 ML SDV IVPUSH PRN (13:54)
[2022-11-26] MEDS ORDERED: HYDROmorphone 0.5 MG/0.5 ML Syringe IVPUSH PRN (13:54)
== END 2022-11-26 16:00 | disposition home or self-care (01) ==
LOC: JD.SDS 08:44
PROVIDERS: ATTEND Orthopaedic Surgery
DX: M17.0 Bilateral primary osteoarthritis of knee (principal); I10 Essential (primary) hypertension; M54.17 Radiculopathy, lumbosacral region; M48.062 Spinal stenosis, lumbar region with neurogenic claudication; G47.33 Obstructive sleep apnea (adult) (pediatric); K22.70 Barrett's esophagus without dysplasia; E66.9 Obesity, unspecified; Z68.33 Body mass index [BMI] 33.0-33.9, adult; Z90.49 Acquired absence of other specified parts of digestive tract; Z87.891 Personal history of nicotine dependence; Z79.82 Long term (current) use of aspirin; Z99.89 Dependence on other enabling machines and devices; Z79.899 Other long term (current) drug therapy; Z98.1 Arthrodesis status
CPT/HCPCS: 0055T; 20610; 27447; 64447; 73560; 97116; 97161; A9270; C1713; C1776; J0171; J0690; J0697; J1170; J1885; J2250; J2270; J2370; J2704; J2795; J3010; J3301; J3370; J3490; J7120; 01402

== ENCOUNTER → 2023-04-08 | Day surgery (SDC) | payer BC ==
[~2023-04-08] MED LIST changes: +Acetaminophen 325 MG Tab PO ONE; -Acetaminophen 325 MG Tab PO SCH; +Cyclobenzaprine 10 MG Tab PO SCH; +Dexmedetomidine 200 MCG/2 ML SDV ONE; +EPINEPHrine 1 MG/ML SDV ONE; +Ketamine 500 mg/10 ML MDV ONE; +Ketorolac 30 MG/ML SDV ONE; +Lactated Ringers 1,000 ML ONE; +Lidocaine 1% PF 2 ML SDV ONE; -Lidocaine 1%/Sod Bicarbonate in NS 8.4% 1 ML Syringe IDERM PRN; +Midazolam 1 MG/ML 2 ML SDV ONE; +Ondansetron 4 MG/2 ML SDV IVPUSH PRN; +Ondansetron 4 MG/2 ML SDV ONE; +Phenylephrine 1% 10 MG/ML SDV ONE; +Pregabalin 25 MG Cap PO ONE; -Pregabalin 25 MG Cap PO SCH; +Propofol 200 MG/20 ML SDV ONE; +Ropivacaine 0.5% 5 MG/ML 30 ML SDV ONE; +Tranexamic Acid 1,000 MG/10 ML Vial ONE; -Triamcinolone Acetonide 40 MG/ML 1 ML SDV ONE; +ceFAZolin 2 GM Vial ONE; +ePHEDrine 50 MG/ML SDV ONE; +fentaNYL 100 MCG/2 ML SDV ONE; +oxyCODONE 5 MG Tab PO PRN; +oxyCODONE ER 10 MG TAB.ER PO ONE; -oxyCODONE ER 10 MG TAB.ER PO SCH
[2023-04-08] MEDS: HYDROmorphone 0.5 MG/0.5 ML Syringe IVPUSH PRN ×2 (13:05→13:42)
[2023-04-08] MEDS: fentaNYL 100 MCG/2 ML SDV IVPUSH PRN ×3 (13:09→14:22)
== END | disposition home or self-care (01) ==
LOC: JD.SDS 10:24
PROVIDERS: ATTEND Orthopaedic Surgery
DX: M17.0 Bilateral primary osteoarthritis of knee (principal); I10 Essential (primary) hypertension; R01.1 Cardiac murmur, unspecified; M54.17 Radiculopathy, lumbosacral region; M48.062 Spinal stenosis, lumbar region with neurogenic claudication; G47.33 Obstructive sleep apnea (adult) (pediatric); Z79.899 Other long term (current) drug therapy; Z98.890 Other specified postprocedural states; Z90.49 Acquired absence of other specified parts of digestive tract; Z87.891 Personal history of nicotine dependence
CPT/HCPCS: 0055T; 27447; 64447; 73560; 97116; 97161; A9270; C1713; C1776; J0171; J0690; J0697; J1170; J1885; J2250; J2270; J2371; J2405; J2704; J2795; J3010; J3370; J3490; J7030; J7120; 01402

== ENCOUNTER 2024-12-29 19:50 | Emergency (ER) | payer BC, MEDICAID, MEDICARE ==
[2024-12-29] MEDS ORDERED: Sodium Chloride 0.9% 10 ML Syringe FLUSH PRN (20:14)
[2024-12-29 20:19] LABS: BASOPHILS PERCENT AUTO 0.4 % (0.0-1.0); EOSINOPHILS ABSOLUTE AUTO 0.1 K/mm3 (0.0-0.4); EOSINOPHILS PERCENT AUTO 1.3 % (0.0-6.0); HEMATOCRIT 44.2 % (42.0-52.0); HEMOGLOBIN 14.9 gm/dl (14.0-18.0); IMMATURE GRAN ABSOLUTE AUTO 0.04 K/mm3 (0.00-0.05); IMMATURE GRAN PERCENT AUTO 0.7 % (0.0-0.4); LYMPHOCYTES ABSOLUTE AUTO 1.2 K/mm3 (1.0-4.8); LYMPHOCYTES PERCENT AUTO 20.9 % (24.0-44.0); MEAN CORPUSCULAR HEMOGLOBIN 30.8 pg (28.0-32.0); MEAN CORPUSCULAR HGB CONC 33.7 g/dl (32.0-36.0); MEAN CORPUSCULAR VOLUME 91.5 fl (83.0-99.0); MEAN PLATELET VOLUME 10.2 fl (9.4-12.4); MONOCYTES ABSOLUTE AUTO 0.6 K/mm3 (0.0-0.8); MONOCYTES PERCENT AUTO 10.2 % (0.0-8.0); NEUTROPHILS ABSOLUTE AUTO 3.7 K/mm3 (1.8-7.7); NEUTROPHILS PERCENT AUTO 66.5 % (41.0-71.0); PLATELET COUNT,PLT 195 K/mm3 (150-400); RED BLOOD CELL COUNT 4.83 M/mm3 (4.52-5.90); WHITE BLOOD CELL COUNT,WBC 5.59 K/mm3 (3.9-11.3)
[2024-12-29] MEDS: Aspirin 81 MG Tab.Chew PO ONE (20:26)
[2024-12-29 20:43] LABS: A/G RATIO 1.2 (1-2); ALBUMIN 3.9 g/dl (3.4-5.0); ANION GAP 11.9 (5-15); BILIRUBIN TOTAL 0.4 mg/dL (0.2-1.0); CREATININE 0.8 mg/dL (0.7-1.3); EST CRCL DRUG DOSING (CG) 90.83 mL/min; PROTEIN TOTAL,TP 7.2 g/dl (6.4-8.2)
[2024-12-29 21:03] LABS: POTASSIUM,K 3.9 mEq/L (3.5-5.1)
[2024-12-29] MEDS: Iopamidol 755 Mg/ML 100 ML Bottle IVPUSH ONE (21:27)
== END 2024-12-29 23:38 | disposition home or self-care (01) ==
LOC: JD.ED 19:50
DX: R07.89 Other chest pain (principal); I10 Essential (primary) hypertension; E66.9 Obesity, unspecified; Z68.36 Body mass index [BMI] 36.0-36.9, adult; Z90.49 Acquired absence of other specified parts of digestive tract; Z79.899 Other long term (current) drug therapy
CPT/HCPCS: 36415; 71045; 71275; 80053; 83735; 84484; 85025; 85379; 93005; 94762; 99285; A9270; Q9967; 93010; 99283

== ENCOUNTER 2025-02-17 06:00 | Day surgery (SDC) | payer MEDICARE ==
[~2025-02-17 06:00] MED LIST changes: -Acetaminophen 325 MG Tab PO ONE; -Cyclobenzaprine 10 MG Tab PO SCH; -Dexmedetomidine 200 MCG/2 ML SDV ONE; -EPINEPHrine 1 MG/ML SDV ONE; -Ketamine 500 mg/10 ML MDV ONE; -Ketorolac 30 MG/ML SDV ONE; -Lactated Ringers 1,000 ML IV SCH; -Lactated Ringers 1,000 ML ONE; -Lidocaine 1% PF 2 ML SDV ONE; -Midazolam 1 MG/ML 2 ML SDV ONE; -Morphine 8 MG, EPINEPHrine 0.3 MG, Cefuroxime 750 MG, Ketorolac 30 MG, Sodium Chloride ... PRN; -Ondansetron 4 MG/2 ML SDV IVPUSH PRN; -Ondansetron 4 MG/2 ML SDV ONE; -Phenylephrine 1% 10 MG/ML SDV ONE; -Pregabalin 25 MG Cap PO ONE; -Propofol 200 MG/20 ML SDV ONE; -Ropivacaine 0.5% 5 MG/ML 30 ML SDV ONE; -Tranexamic Acid 1,000 MG/10 ML Vial ONE; -Vancomycin 1 GM SDV ONE; -ceFAZolin 2 GM Vial ONE; -ePHEDrine 50 MG/ML SDV ONE; -fentaNYL 100 MCG/2 ML SDV ONE; -oxyCODONE 5 MG Tab PO PRN; -oxyCODONE ER 10 MG TAB.ER PO ONE
[2025-02-17] MEDS ORDERED: Ropivacaine 0.5% 5 MG/ML 30 ML SDV ONE (06:10)
[2025-02-17] MEDS ORDERED: Propofol 200 MG/20 ML SDV ONE (06:13)
[2025-02-17] MEDS ORDERED: fentaNYL 100 MCG/2 ML SDV ONE (06:13)
[2025-02-17] MEDS ORDERED: Midazolam 1 MG/ML 2 ML SDV ONE (06:13)
[2025-02-17] MEDS: Lactated Ringers 1,000 ML IV SCH (06:25)
[2025-02-17] MEDS: Triamcinolone Acetonide 40 MG/ML 1 ML SDV ONE (07:21)
== END 2025-02-17 07:50 | disposition home or self-care (01) ==
LOC: JD.SDS 06:00
PROVIDERS: ATTEND Orthopaedic Surgery
DX: G56.02 Carpal tunnel syndrome, left upper limb (principal); M19.031 Primary osteoarthritis, right wrist; M19.032 Primary osteoarthritis, left wrist; M48.062 Spinal stenosis, lumbar region with neurogenic claudication; I10 Essential (primary) hypertension; E66.9 Obesity, unspecified; F17.290 Nicotine dependence, other tobacco product, uncomplicated; Z68.36 Body mass index [BMI] 36.0-36.9, adult; Z79.82 Long term (current) use of aspirin; Z79.899 Other long term (current) drug therapy
CPT/HCPCS: 20605; 64450; 64721; J0665; J0690; J2003; J2250; J2704; J2795; J3010; J3301; J7120; 01810

== ENCOUNTER 2025-05-18 14:40 | Emergency (ER) | payer MEDICARE ==
[2025-05-18 16:00] LABS: BASOPHILS ABSOLUTE AUTO 0.0 K/mm3 (0.0-0.2); BASOPHILS PERCENT AUTO 0.7 % (0.0-1.0); EOSINOPHILS ABSOLUTE AUTO 0.3 K/mm3 (0.0-0.4); EOSINOPHILS PERCENT AUTO 5.0 % (0.0-6.0); IMMATURE GRAN ABSOLUTE AUTO 0.01 K/mm3 (0.00-0.05); IMMATURE GRAN PERCENT AUTO 0.2 % (0.0-0.4); LYMPHOCYTES ABSOLUTE AUTO 1.0 K/mm3 (1.0-4.8); LYMPHOCYTES PERCENT AUTO 17.8 % (24.0-44.0); MEAN PLATELET VOLUME 10.0 fl (9.4-12.4); MONOCYTES ABSOLUTE AUTO 0.6 K/mm3 (0.0-0.8); MONOCYTES PERCENT AUTO 11.3 % (0.0-8.0); NEUTROPHILS ABSOLUTE AUTO 3.5 K/mm3 (1.8-7.7); NEUTROPHILS PERCENT AUTO 65.0 % (41.0-71.0); NRBC ABSOLUTE 0.00 (0.00-0.02); NRBC PERCENT 0.0 % (0.0-0.2); PLATELET COUNT,PLT 220 K/mm3 (150-400); RED BLOOD CELL COUNT 4.83 M/mm3 (4.52-5.90); WHITE BLOOD CELL COUNT,WBC 5.40 K/mm3 (3.9-11.3)
[2025-05-18 16:10] LABS: A/G RATIO 1.2 (1-2); ALANINE AMINOTRANSFERASE,ALT 41.0 U/L (16-63); ASPARTATE AMNIOTRANSFERASE,AST 26.0 U/L (15-37); BILIRUBIN TOTAL 0.4 mg/dL (0.2-1.0); BLOOD UREA NITROGEN,BUN 16.0 mg/dL (7-18); CARBON DIOXIDE,CO2 26.0 mEq/L (21-32); CHLORIDE,CL 104.0 mEq/L (98-107); CREATININE 0.7 mg/dL (0.7-1.3); EST CRCL DRUG DOSING (CG) 102.4 mL/min; ESTIMATED GFR 101.0 mL/min (>60); GLUCOSE RANDOM 103.0 mg/dL (70-99); POTASSIUM,K 3.9 mEq/L (3.5-5.1); PROTEIN TOTAL,TP 7.2 g/dl (6.4-8.2); SODIUM,NA 138.0 mEq/L (136-145); TROPONIN I HIGH SENSITIVITY 10.0 pg/mL (<=76)
[2025-05-18] MEDS: Iopamidol 755 Mg/ML 100 ML Bottle IVPUSH ONE (16:39)
[2025-05-18] MEDS: Sodium Chloride 0.9% 10 ML Syringe FLUSH ONE (16:40)
[2025-05-18 17:08] LABS: TSH 0.261 uIU/mL (0.358-3.74)
[2025-05-18 17:27] LABS: T4 FREE 0.85 ng/dL (0.76-1.46)
== END 2025-05-18 17:30 | disposition home or self-care (01) ==
LOC: JD.ED 14:40
DX: R07.89 Other chest pain (principal); E66.9 Obesity, unspecified; Z79.899 Other long term (current) drug therapy; Z90.49 Acquired absence of other specified parts of digestive tract; Z68.34 Body mass index [BMI] 34.0-34.9, adult
CPT/HCPCS: 36415; 71046; 71275; 80053; 84439; 84443; 84484; 85025; 85379; 93005; 99285; Q9967